=== PATIENT | male | born 1950 | race Caucasian/White ===

== ENCOUNTER 2018-07-11 11:01 | Inpatient (IN) | payer BC ==
[~2018-07-11] VITALS: Ht 188 cm; Wt 111.2 kg
[2018-07-11] MEDS ORDERED: ONDA4TAB12 PO (11:44)
[2018-07-11] MEDS ORDERED: MAGN400O7 PO (11:44)
[2018-07-11] MEDS ORDERED: ACET650S11 RC (11:44)
[2018-07-11] MEDS ORDERED: IBUP400T18 PO (11:44)
[2018-07-11] MEDS ORDERED: DOCU-109 PO (11:44)
[2018-07-11] MEDS ORDERED: LISI-334 PO (11:44)
[2018-07-11] MEDS ORDERED: [UNRECOGNIZED DRUG - CODE] IJ (11:44)
[2018-07-11] MEDS ORDERED: PREG100C PO (11:44)
[2018-07-11] MEDS ORDERED: DONE10TA61 PO (11:44)
[2018-07-11] MEDS ORDERED: ASPI-612 PO (11:44)
[2018-07-11] MEDS ORDERED: POLY17PO5 PO (11:44)
[2018-07-11] MEDS ORDERED: FURO-68 PO (11:44)
[2018-07-11] MEDS ORDERED: BISA5TAB4 PO (11:44)
[2018-07-11] MEDS ORDERED: ACET325T9 PO (11:44)
[2018-07-11] MEDS ORDERED: BISA10SU2 RC (11:44)
[2018-07-11] MEDS ORDERED: AMLO5TAB4 PO (11:44)
[2018-07-11] MEDS ORDERED: CLON0.5T PO (11:44)
[2018-07-11] MEDS ORDERED: ATOR20TA58 PO (11:44)
[2018-07-11 14:35] VITALS: BP 113/67
[2018-07-11] MEDS ORDERED: ACETAMINOPHEN 325 MG TABLET PO PRN (14:45)
[2018-07-11] MEDS ORDERED: METHYL SALICYLATE/MENTHOL TOPICAL OINTMENT 29GM TUBE. TP PRN (14:45)
[2018-07-11] MEDS ORDERED: MAGNESIUM HYDROXIDE 2,400 MG/30 ML ORAL.SUSP. PO PRN (14:45)
[2018-07-11] MEDS ORDERED: MAG HYDROX/AL HYDROX/SIMETH 30 ML ORAL.SUSP PO PRN (14:45)
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
[2018-07-11 15:22] LABS: BASO % 1 % (0-3); EOS # 0.2 x10^3/uL (0.0-0.7); EOS % 3 % (0-3); HEMATOCRIT 30.8 % (39.0-53.0); HEMOGLOBIN 10.7 g/dL (13.0-17.5); LYMPH # 1.3 x10^3/uL (1.0-4.8); LYMPH % 14 % (24-48); MEAN CORPUSCULAR HEMOGLOBIN 31 pg (25-35); MEAN CORPUSCULAR HGB CONC 35 g/dL (31-37); MEAN CORPUSCULAR VOLUME 88 fL (79-100); MONO # 0.6 x10^3/uL (0.0-1.1); MONO % 6 % (0-9); NEUT % 77 % (31-73); PLATELET COUNT 311 x10^3/uL (140-400); RED BLOOD COUNT 3.49 x10^6/uL (4.30-5.70); RED CELL DISTRIBUTION WIDTH 12.8 % (11.5-14.5); WHITE BLOOD COUNT 9.1 x10^3/uL (4.0-11.0)
[2018-07-11 15:36] LABS: CALCIUM 8.5 mg/dL (8.5-10.1); GFR 33.5; MAGNESIUM 1.7 mg/dL (1.8-2.4); POTASSIUM 4.4 mmol/L (3.5-5.1); TOTAL BILIRUBIN 0.2 mg/dL (0.2-1.0)
[2018-07-11] MEDS ORDERED: METF500T PO (15:39)
[2018-07-11] MEDS ORDERED: QUET25TA5 PO (15:44)
[2018-07-11] MEDS ORDERED: POLYETHYLENE GLYCOL 3350 17 GM PACKET. PO PRN (15:45)
[2018-07-11] MEDS ORDERED: clonazePAM 0.5 MG TABLET PO PRN (15:45)
[2018-07-11] MEDS ORDERED: QUEtiapine 25 MG TABLET. PO PRN (16:00)
[2018-07-11 16:28] VITALS: BP 152/78
[2018-07-11] MEDS: metFORMIN 500 MG TABLET PO SCH (18:01)
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
[2018-07-11] MEDS ORDERED: DEXTROSE 50% 25 GM / 50ML DISP.SYRIN. IV PRN (19:30)
[2018-07-11] MEDS: DONEPEZIL HCL 10 MG TABLET PO SCH (20:20)
[2018-07-11] MEDS: DOCUSATE SODIUM 100 MG CAPSULE PO SCH ×2 (20:20→20:40)
[2018-07-11] MEDS: PREGABALIN 50 MG CAPSULE PO SCH ×2 (20:22→20:40)
[2018-07-11] MEDS: INSULIN LISPRO 300 UNITS/3 ML INSULN.PEN. SQ SCH (20:29)
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
[2018-07-11 23:11] LABS: CLARITY,URINE CLEAR; COLOR,URINE YELLOW
[2018-07-11 23:12] LABS: BACTERIA,URINE 0 /HPF (0-FEW); BILIRUBIN,URINE NEG (NEG); GLUCOSE,URINE 250 mg/dL (NEG); NITRITE,URINE NEG (NEG); RBC,URINE 0 /HPF (0-2); SQUAMOUS EPITHELIAL CELL,UR OCC /LPF; UROBILINOGEN,URINE 0.2 mg/dL (0.2 mg/dL); WBC,URINE OCC /HPF (0-4)
--- NOTE | 2018-07-11 23:55 | PSYEV ---
DATE OF SERVICE: 07/11/2018 REASON FOR ADMISSION: This 68-year-old single male, was admitted to [facility] at the request of staff from [facility]. The patient apparently presented to the ER at least 5 times in the last few days complaining of leg pain and also some agitation and confusion with his thinking. The patient is also recently having visual hallucinations, expresses suicidal ideation, unable to sleep, at times hyperverbal. CHIEF COMPLAINT: The patient mainly focused on his problems with his leg pain and he knew what was going on. He knew that this has been here at [facility]. The patient also able to hold a reasonable conversation, did not exhibit any confusion at this time. The patient knew the correct month, year, but the date was one day behind. The patient was able to do 3 steps of serial 7's. The patient was able to recall 3 objects in 5 minutes. The patient denies that he had any major problems with his memory. The patient also has been diagnosed with dementia, Lewy body. HISTORY OF PRESENT ILLNESS: The patient states he is retired. 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 The patient was twice. First marriage, he has five children. The second marriage, one child. The patient has apparently dealt problems with second marriage. The patient is also questioning why his daughter sent him to the hospital. He denied that he had any problems, but mainly focused on his leg pain healing up. PAST MEDICAL HISTORY: The patient has a history of diabetes mellitus type 2, renal insufficiency, chronic kidney disease stage 3 and also history of alcohol abuse, peripheral neuropathy, hypertension, anemia, gait impairment, but the patient is able to walk with a walker. PAST PSYCHIATRIC HISTORY: The patient denies that has been treated for any major psychiatric problems. The patient admits he has some difficulty with memory at times. The patient also has difficulty with sleep, but the patient apparently has been drinking for quite some time. Currently, minimized his problems. The patient has been treated by his primary care doctor, James Berger. The patient's lab reviewed. The patient's RBC was 3.4, hemoglobin 10.7. The patient's electrolytes were within normal range. BUN was 38, creatinine 2, glucose 252, magnesium 1.7, total protein 6. The patient's liver enzymes were within normal range. PAST MEDICATION HISTORY: The patient states he is on temazepam for a period of time he was taking at night for sleep. The patient is also on Aricept 10 mg at night, Seroquel 12.5 mg daily p.r.n., Klonopin 0.125 mg at bedtime p.r.n. The patient is also on Lyrica 100 mg b.i.d., lisinopril 20 mg daily, amlodipine 5 mg daily, Lasix 40 mg daily, Lipitor 10 mg daily. SOCIAL HISTORY: History of alcohol abuse, but the patient is currently minimizing it. We will try to get more information with regard to the extent of his drinking. MENTAL STATUS EXAMINATION: The patient appeared to be of stated age, casually dressed, obese, marked psychomotor retardation. He was alert, oriented and able to make eye contact. His behavior was appropriate during the assessment, but showed some delayed response to questions. Speech was clear, monotone, decreased rate and rhythm. His affect and mood, denies of feeling depressed, but admits to feeling anxious, also fearful being by himself, having problems with severe pain on his leg. The patient focused on his medical complaints. The patient also admits to having panic attacks, but the patient denies that he had any visual hallucinations at this time. OBJECTIVE: VITAL SIGNS: Temperature 98.1, blood pressure 152/78, pulse 80, respirations 20. The patient is currently not exhibiting any withdrawal symptoms as he was drinking heavy. The patient is able to concentrate fairly well and the patient was able to give fairly reliable information with regard to his past. The patient is oriented to time, place and person. His memory is intact for both past and present. JUDGMENT: Fair. INSIGHT: Limited. PSYCHOSOCIAL HISTORY: The patient states he has had a good childhood. Denies of any abuse. The patient admits to drinking in the past, but denies has been drinking recently. The patient states is twice, first marriage 5 children, second marriage one son. The patient keeps in contact with all of his children and grandchildren. The patient denies of any legal problems. 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 Currently retired, lives alone. STRENGTHS: The patient apparently able to hold a reasonable conversation, able to provide fairly reliable information. The patient has a high school education. The patient currently is retired. WEAKNESSES: The patient is having multiple physical complaints. The patient is also having problems with concentration and thinking at times and recent history of visual hallucinations. INITIAL TREATMENT AND PLAN: The patient will be admitted to [facility]. The patient will be seen by Dr. Ozuna for physical exam. The patient's lab reviewed. The patient will be under observation. Continue with the current medications. LENGTH OF STAY: 7 days. DISCHARGE CRITERIA: The patient is able to show some improvement and no major behavior problems for 3 consecutive days. ADDENDUM DIAGNOSES: AXIS I: Generalized anxiety disorder; cognitive disorder, mild, panic disorder. AXIS II: None. AXIS III: Diabetes type 2, chronic kidney disease stage 3, peripheral neuropathy, hypertension, anemia and also history of alcohol abuse. AMINA SMALL MD DR: FAMILIA/vlad JOB#: [id number] / [id number]
[2018-07-12 02:07] LABS: THYROXINE 8.2 ug/dL (4.5-12.0)
[2018-07-12 03:07] LABS: HEMOGLOBIN A1C 7.1 % (4.8-5.6)
[2018-07-12 06:01] VITALS: BP 127/70
[2018-07-12] MEDS: DOCUSATE SODIUM 100 MG CAPSULE PO SCH ×2 (08:07→19:31)
[2018-07-12] MEDS: FUROSEMIDE 40 MG TABLET PO SCH (08:09)
[2018-07-12] MEDS: LISINOPRIL 20 MG TABLET PO SCH (08:09)
[2018-07-12] MEDS: ASPIRIN ENTERIC COATED 81 MG TABLET.DR. PO SCH (08:09)
[2018-07-12] MEDS: amLODIPine BESYLATE 5 MG TABLET PO SCH (08:09)
[2018-07-12] MEDS: metFORMIN 500 MG TABLET PO SCH ×2 (08:10→17:42)
[2018-07-12] MEDS: ATORVASTATIN CALCIUM 20 MG TABLET PO SCH (08:10)
[2018-07-12] MEDS: PREGABALIN 50 MG CAPSULE PO SCH ×2 (08:10→19:31)
[2018-07-12] MEDS: INSULIN LISPRO 300 UNITS/3 ML INSULN.PEN. SQ SCH ×4 (08:17→19:54)
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
--- NOTE | 2018-07-12 15:59 | NUR ---
Faxed request to Bella at [facility] for CARE assessment to be completed.
[2018-07-12 16:14] VITALS: BP 132/69
[2018-07-12 17:41] LABS: THYROID STIM HORMONE (TSH) 2.632 uIU/mL (0.358-3.740)
--- NOTE | 2018-07-12 19:22 | NUR ---
Nursing Note: Pt's daughter, Reena, visited and took home pt's ring, iphone and iphone psychology tech. Pt was informed of this.
[2018-07-12] MEDS: DONEPEZIL HCL 10 MG TABLET PO SCH (19:31)
[2018-07-12] MEDS: DIVALPROEX 125 MG CAP.SPRINK PO SCH (19:33)
--- NOTE | 2018-07-12 22:13 | NUR ---
Nursing note: Assumed care of pt in the day room. He was pleasant, cooperative and interactive. No c/o pain at this time.
--- NOTE | 2018-07-12 23:44 | PN ---
DATE: 07/12/2018 SUBJECTIVE: The patient was seen today, met with the staff, chart reviewed, and also met with the patient's daughter, she was able to give more information. OBSERVATION: VITAL SIGNS: Temperature 96.7, blood pressure 177/70, pulse 70, respirations 18, O2 sat 98%. Slept about 4 hours last night. CURRENT MEDICATIONS: The patient's current medications include Depakote 250 mg at night, Lipitor 20 mg daily, Lasix 40 mg daily, aspirin 81 mg daily, amlodipine 5 mg daily, lisinopril 20 mg daily. He is also on insulin, Lyrica 100 mg b.i.d., Aricept 10 mg at night, metformin 1000 mg b.i.d., Seroquel 12.5 mg p.r.n., clonazepam 0.125 mg at night p.r.n. The patient is not having any side effects. The patient's daughter reports that the patient had at least 2 hospitalizations once to [facility] on the medical floor and at [facility] secondary to his behavior problems and dementia. Apparently, he was evaluated at [facility] and diagnosed with Lewy body disease, dementia, and also Alzheimer dementia, and also pseudodementia. The patient apparently had more problems in the past 8 weeks including having visual hallucinations and usually it happens when the patient was asleep and gets very angry, upset, and he has seen people in his room, and also he saw at one time the whole room becoming smaller, covered with the bugs, and the patient also claims he tried to go and touch them and he did not feel anything. He was not bitten by the bugs. The patient states it happens, but most of the time the patient has a fairly clear sensorium and is not confused. Staff has not observed any confusion or delusions or having visual hallucinations so far. The patient is able to orient himself at this time. His memory is fairly intact except for episodic confusion. ASSESSMENT: AXIS I: 1. Generalized anxiety disorder. 2. Cognitive disorder, mild. 3. Panic disorder and also history of Lewy body dementia. AXIS II: None. AXIS III: Diabetes mellitus type 2, chronic kidney disease stage 3, peripheral neuropathy, hypertension, anemia, and history of alcohol abuse. PLAN: To continue with the treatment. AMINA SMALL MD DR: Mary JOB#: [id number] / [id number]
[2018-07-13 05:52] VITALS: BP 150/66
[2018-07-13] MEDS: ASPIRIN ENTERIC COATED 81 MG TABLET.DR. PO SCH (07:54)
[2018-07-13] MEDS: ATORVASTATIN CALCIUM 20 MG TABLET PO SCH (07:54)
[2018-07-13] MEDS: metFORMIN 500 MG TABLET PO SCH ×2 (07:54→17:54)
[2018-07-13] MEDS: DOCUSATE SODIUM 100 MG CAPSULE PO SCH ×2 (07:55→20:11)
[2018-07-13] MEDS: FUROSEMIDE 40 MG TABLET PO SCH (07:55)
[2018-07-13] MEDS: amLODIPine BESYLATE 5 MG TABLET PO SCH (07:55)
[2018-07-13] MEDS: LISINOPRIL 20 MG TABLET PO SCH (07:55)
[2018-07-13] MEDS: INSULIN LISPRO 300 UNITS/3 ML INSULN.PEN. SQ SCH ×4 (07:57→20:14)
[2018-07-13] MEDS: PREGABALIN 50 MG CAPSULE PO SCH ×2 (07:57→20:11)
--- NOTE | 2018-07-13 13:30 | NUR ---
resumed pt care.
[2018-07-13 16:23] VITALS: BP 136/84
--- NOTE | 2018-07-13 17:02 | PN ---
DATE: 07/13/2018 SUBJECTIVE: The patient was seen today, met with the staff, chart reviewed. The patient apparently having problems with his gait, has some swelling of feet. The patient also admits to having problems with constipation and is having difficulty getting out of a toilet seat and to close his pants, and he is hoping to get some help. OBSERVATION: VITAL SIGNS: Temperature 96.8, blood pressure 150/66, pulse 83, respirations 18, O2 sat 96%. Slept about 6 hours last night. The patient is not presenting with any major problems. The patient apparently has not shown any confusion, any agitation, did not show any visual hallucinations. The patient admits he had episodes while he was at home. The patient's remote memory is intact. Also, recent memory fairly good. The patient is able to comprehend the surroundings, able to hold a reasonable conversation. CURRENT MEDICATIONS: Include Depakote 250 mg at night, Lipitor 20 mg daily, Lasix 40 mg daily, aspirin 81 mg daily, Norvasc 5 mg daily, lisinopril 20 mg daily. He is also on insulin lispro, Lyrica 100 mg b.i.d., Aricept 10 mg at night, metformin 1000 mg b.i.d., Seroquel 12.5 mg daily p.r.n. for agitation, Klonopin 0.125 mg at bedtime p.r.n. The patient is not having any major physical problems except for gait, but able to walk. The patient's appetite is fair. The patient's lab reviewed except for hemoglobin of 10.7 and elevated blood sugar. All other results were within normal limits. ASSESSMENT: AXIS I: 1. Generalized anxiety disorder. 2. Cognitive disorder, mild. 3. Panic disorder. 4. History of Lewy body disease. AXIS II: None. AXIS III: Diabetes mellitus type 2, chronic kidney disease stage 3, peripheral neuropathy, hypertension, anemia and history of alcohol abuse. The patient claims he has not had any alcohol for several years. AMINA SMALL MD DR: FAMILIA/vlad JOB#: [id number] / [id number]
--- NOTE | 2018-07-13 18:18 | NUR ---
pt up to supper. in pleasant spirits. joking with staff. compliant with meds and cares.
[2018-07-13] MEDS: DIVALPROEX 125 MG CAP.SPRINK PO SCH (20:11)
[2018-07-13] MEDS: DONEPEZIL HCL 10 MG TABLET PO SCH (20:11)
--- NOTE | 2018-07-13 21:35 | NUR ---
Pt sitting up in day room at shift change. Pt calm, pleasant, and interactive. Pt c/o back pain, reports that pain so severe that he is unable to wipe himself. Pt also c/o bilateral leg pain. Pt attempted to resist HS medications stating "I took those at supper time". Pt was compliant with medications after being educated about his medications, dosing, and scheduling.
[2018-07-14 05:23] VITALS: BP 167/79
[2018-07-14] MEDS: metFORMIN 500 MG TABLET PO SCH ×2 (08:03→17:37)
[2018-07-14] MEDS: FUROSEMIDE 40 MG TABLET PO SCH (08:04)
[2018-07-14] MEDS: INSULIN LISPRO 300 UNITS/3 ML INSULN.PEN. SQ SCH ×4 (08:04→22:13)
[2018-07-14] MEDS: LISINOPRIL 20 MG TABLET PO SCH (08:06)
[2018-07-14] MEDS: ATORVASTATIN CALCIUM 20 MG TABLET PO SCH (08:07)
[2018-07-14] MEDS: DOCUSATE SODIUM 100 MG CAPSULE PO SCH ×2 (08:07→21:52)
[2018-07-14] MEDS: amLODIPine BESYLATE 5 MG TABLET PO SCH (08:08)
[2018-07-14] MEDS: ASPIRIN ENTERIC COATED 81 MG TABLET.DR. PO SCH (08:08)
[2018-07-14] MEDS: PREGABALIN 50 MG CAPSULE PO SCH ×2 (08:23→21:52)
--- NOTE | 2018-07-14 09:45 | NUR ---
ACTIVITY THERAPY ASSESSMENT Completed based on observation and interview. Pt. was sitting in the day room, greeted EXCHANGE CONSULTANT as she entered the room. Pt. was talkative and the conversation jumped around often, shared that he used to work nights for [employer] and thought that job might have messed up his REM sleep. Soon Pt's RN came with his medications. Pt. questioned the meds he was given but took them without hesitation. He is really looking forward to his 50th high school reunion. The topic of instruments was brought up. Pt. shared that he used to play the [employer], [employer] and perform [place] the [place] when he was younger. Pt. 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 He has a dog, Arnaldo and an "evil, wicked sister." When asked why he was here, Pt. stated he wanted to "communicate better." He talked about the staff here, some say they'll do something and don't. He said some even tell him they aren't his "servant or slave". Our interview was interrupted when another patient walked by and appeared to need help to a chair but this patient was calm and welcoming. 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 He shared he didn't have good luck with women, talked to a crusher and blender operator often about struggles. He also enjoys swimming, boating, Motown music and 50s/60s. He talked about needing help in the restroom, but not getting it. Made the comment, he thinks he should switch to a wheelchair to get the help he needs. Initial goal aimed to increase socialization and engagement: Pt. will participate in all Activity Therapy groups he is invited to.
[2018-07-14 15:22] VITALS: BP 129/65
[2018-07-14] MEDS: DONEPEZIL HCL 10 MG TABLET PO SCH (21:51)
[2018-07-14] MEDS: DIVALPROEX 125 MG CAP.SPRINK PO SCH (21:51)
--- NOTE | 2018-07-14 22:38 | PDOC ---
Exam Note: Wesly Note: Please also refer to the separate dictated note~for this date of service dictated separately. Discussed the patient with Nursing staff reviewed the chart.~Reviewed interim history and current functioning. Reviewed vital signs,~ Labs/ Radiology~and current medications noted below. Continue current treatment with the changes noted in the dictated addendum note Assessment: Vital Signs: Vital Signs Date Time Temp Pulse Resp B/P (MAP) Pulse Ox O2 Delivery O2 Flow Rate FiO2 07/14/18 15:22 97.4 86 20 129/65 (86) 99 Room Air I&O Intake and Output 07/14/18 07:00 Intake Total 1460 ml Balance 1460 ml Intake Oral 1460 ml Labs: Laboratory Tests Test 07/14/18 07:13 07/14/18 11:36 07/14/18 16:49 07/14/18 19:20 Glucose (Fingerstick) 201 mg/dL (70-99) H 365 mg/dL (70-99) H 253 mg/dL (70-99) H 292 mg/dL (70-99) H Current Medications: Meds: Current Medications Acetaminophen (Tylenol) 650 mg PRN Q6HRS PRN PO PAIN / TEMP; Start 07/11/18 at 14:45 Multi-Ingredient Ointment (Analgesic [place]) 1 charisse PRN QID PRN TP MUSCLE PAIN; Start 07/11/18 at 14:45 Al Hydroxide/Mg Hydroxide (Mylanta Plus Xs) 15 ml PRN AFTMEALHC PRN PO DYSPEPSIA; Start 07/11/18 at 14:45 Magnesium Hydroxide (Milk Of Magnesia) 2,400 mg PRN QHS PRN PO CONSTIPATION; Start 07/11/18 at 14:45 Lisinopril (Prinivil) 20 mg DAILY PO Last administered on 07/14/18at 08:06; Start 07/12/18 at 09:00 Amlodipine Besylate (Norvasc) 5 mg DAILY PO Last administered on 07/14/18at 08: 08; Start 07/12/18 at 09:00 Aspirin (Aspirin Enteric Coated) 81 mg DAILY PO Last administered on 07/14/18at 08:08; Start 07/12/18 at 09:00 Docusate Sodium (Colace) 100 mg BID PO Last administered on 07/14/18at 21:52; Start 07/11/18 at 21:00 Donepezil HCl (Aricept) 10 mg QHS PO Last administered on 07/14/18at 21:51; Start 07/11/18 at 21:00 Furosemide (Lasix) 40 mg DAILY PO Last administered on 07/14/18at 08:04; Start 07/12/18 at 09:00 Polyethylene Glycol (miraLAX) 17 gm PRN DAILY PRN PO CONSTIPATION; Start at 15:45 Pregabalin (Lyrica) 100 mg BID PO Last administered on 07/14/18at 21:52; Start 07/11/18 at 21:00 Atorvastatin Calcium (Lipitor) 20 mg DAILY PO Last administered on 07/14/18at 08 :07; Start 07/12/18 at 09:00 Clonazepam (KlonoPIN) 0.125 mg PRN QHS PRN PO ANXIETY / AGITATION; Start at 15:45 Metformin HCl (Glucophage) 1,000 mg BIDWMEALS PO Last administered on at 17:37; Start 07/11/18 at 17:00 Quetiapine Fumarate (SEROquel) 12.5 mg PRN DAILY PRN PO AGITATION; Start at 16:00 Insulin Human Lispro (HumaLOG) 0-5 UNITS TIDACHC SQ Last administered on at 22:13; Start 07/11/18 at 21:00 Dextrose 12.5 gm PRN Q15MIN PRN IV SEE COMMENTS; Start 07/11/18 at 19:30 Divalproex Sodium (Depakote Sprinkles) 250 mg QHS PO Last administered on at 21:51; Start 07/12/18 at 21:00 Active Scripts Active Reported Seroquel (Quetiapine Fumarate) 25 Mg Tablet 12.5 Mg PO PRN DAILY PRN Glucophage (Metformin Hcl) 500 Mg Tablet 1,000 Mg PO BIDWMEALS Lyrica (Pregabalin) 100 Mg Capsule 1 Cap PO BID Miralax (Polyethylene Glycol 3350) 17 Gm Powd.pack 1 Packet PO DAILY PRN Lisinopril 20 Mg Tablet 1 Tab PO DAILY Lasix (Furosemide) 40 Mg Tablet 1 Tab PO DAILY Aricept (Donepezil Hcl) 10 Mg Tablet 1 Tab PO QHS Colace (Docusate Sodium) 100 Mg Capsule 1 Cap PO BID Klonopin (Clonazepam) 0.5 Mg Tablet 0.25 Tab PO HS PRN Atorvastatin Calcium 20 Mg Tablet 20 Mg PO DAILY Aspirin Ec (Aspirin) 81 Mg Tablet. 1 Tab PO DAILY Norvasc (Amlodipine Besylate) 5 Mg Tablet 1 Tab PO DAILY I have reviewed the current psychotropics carefully including drug interactions. Risk benefit ratio favors no change other than as noted in my dictated progress note. Diagnosis: Problems: (1) Dementia, vascular, with depression DARWIN ISAACS MD Jul 14, 2018 22:38
--- NOTE | 2018-07-14 23:41 | PN ---
DATE: 07/14/2018 SUBJECTIVE: The patient was seen today, met with the staff, chart reviewed. The staff reports no major complaints, not exhibiting any major problems. The patient has not exhibited any confusion or any visual hallucinations. His behavior has been appropriate most of the time. The patient not admitting to feeling depressed. No suicidal or homicidal thoughts. OBSERVATION: VITAL SIGNS: Temperature 97.7, blood pressure 167/74, pulse 74, respirations 14, O2 sat 99%. Slept about 5 hours last night. The patient's appetite improved. The patient has been participating in activities. The patient has some difficulty walking, but his gait is fairly steady, no falls. MEDICATIONS: The patient's current medications include Depakote 250 mg at night and Aricept 10 mg at night, Seroquel 12.5 mg daily p.r.n. for agitation, Klonopin 0.125 mg at bedtime p.r.n. LABORATORY DATA: The patient's lab reviewed. ASSESSMENT: 1. Generalized anxiety disorder. 2. Cognitive disorder, mild. 3. Panic disorder. 4. History of Lewy body disease. PLAN: To continue with the treatment. AMINA SMALL MD DR: FAMILIA/vlad JOB#: [id number] / [id number]
--- NOTE | 2018-07-15 00:55 | NUR ---
Behavior Intervention Response and Plan: BIRP Note: Behavior: Assumed Care of patient, patient located in Bed at shift change. Patient exhibited the following behavior Calm, Sleeping, Cooperative. Brief assessment on rounds of vital signs, medication needs, lab studies, and pain. Treatment plan problems . Intervention: Patient assessed and the following interventions initiated safety checks 15 Minute Checks Personal Alarm in place , Head to toe Assessment , Medications. Response: After interactions and interventions patient responded in the following manner, Compliant , ,. Continue to assess behaviors and condition will continue to monitor throughout the shift as needed. Patient educated on ADL's, and hand hygiene. Plan: Continue to monitor Master Treatment Plan for patient's progress toward short term goals of Improved Mood, Decreased Anxiety, [facility] goals to return to previous living setting vs placement. Continue to assess patient for changes in above assessment. Monitor for medication needs, pain, and safety concerns. Hourly rounding performed to ensure safe environment.
[2018-07-15 06:29] VITALS: BP 138/66
[2018-07-15] MEDS: ATORVASTATIN CALCIUM 20 MG TABLET PO SCH (07:17)
[2018-07-15] MEDS: ASPIRIN ENTERIC COATED 81 MG TABLET.DR. PO SCH (07:17)
[2018-07-15] MEDS: FUROSEMIDE 40 MG TABLET PO SCH (07:17)
[2018-07-15] MEDS: DOCUSATE SODIUM 100 MG CAPSULE PO SCH ×2 (07:17→19:43)
[2018-07-15] MEDS: metFORMIN 500 MG TABLET PO SCH ×2 (07:17→16:29)
[2018-07-15] MEDS: amLODIPine BESYLATE 5 MG TABLET PO SCH (07:18)
[2018-07-15] MEDS: LISINOPRIL 20 MG TABLET PO SCH (07:19)
[2018-07-15] MEDS: PREGABALIN 50 MG CAPSULE PO SCH ×2 (07:20→19:48)
[2018-07-15] MEDS: INSULIN LISPRO 300 UNITS/3 ML INSULN.PEN. SQ SCH ×4 (08:26→19:50)
[2018-07-15 17:38] VITALS: BP 152/82
--- NOTE | 2018-07-15 18:19 | NUR ---
Pt has been calm and cooperative throughout shift. Pt insisted that he could not wipe himself or put on his own pants. This nurse and a PHYTOCHEMISTRY PROFESSOR insisted that pt complete ADLs himself, since he came from home and was doing it himself at home. Pt eventually obliged and went to day room when dressed.
--- NOTE | 2018-07-15 18:21 | NUR ---
Behavior Intervention Response and Plan: BIRP Note: Behavior: Assumed Care of patient, patient located in Patient Room at shift change. Patient exhibited the following behavior Irritable, Attention Seeking, Resistive. Brief assessment on rounds of vital signs, medication needs, lab studies, and pain. Treatment plan problems: alteration in thought process and fall risk. Intervention: Patient assessed and the following interventions initiated safety checks 15 Minute Checks Cognitive Assessment , Head to toe Assessment , Medications. Response: After interactions and interventions patient responded in the following manner, Calm , Compliant ,Cooperative. Continue to assess behaviors and condition will continue to monitor throughout the shift as needed. Patient educated on ADL's, and hand hygiene. Plan: Continue to monitor Master Treatment Plan for patient's progress toward short term goals of Decreased Anxiety, No harm To self/ others, long term care pharmacist goals to return to previous living setting vs placement. Continue to assess patient for changes in above assessment. Monitor for medication needs, pain, and safety concerns. Hourly rounding performed to ensure safe environment.
[2018-07-15] MEDS: DIVALPROEX 125 MG CAP.SPRINK PO SCH (19:42)
[2018-07-15] MEDS: DONEPEZIL HCL 10 MG TABLET PO SCH (19:43)
--- NOTE | 2018-07-15 22:16 | PDOC ---
Exam Note: Wesly Note: "This is a late entry for 07/14/18. The template note for 07/14/18 was completed in error and should be disregarded." Please also refer to the separate dictated note~for this date of service dictated separately.~Patient seen individually. Discussed the patient with Nursing staff reviewed the chart.~ Reviewed interim history and current functioning. Reviewed vital signs,~Labs/ Radiology~and current medications noted below. Continue current treatment with the changes noted in the dictated addendum note Assessment: Vital Signs: Vital Signs Date Time Temp Pulse Resp B/P (MAP) Pulse Ox O2 Delivery O2 Flow Rate FiO2 07/15/18 17:38 98.4 78 16 152/82 (105) 98 07/14/18 15:22 Room Air I&O Intake and Output 07/15/18 07:00 Intake Total 1680 ml Balance 1680 ml Intake Oral 1680 ml Labs: Laboratory Tests Test 07/15/18 07:40 07/15/18 11:59 07/15/18 17:16 07/15/18 19:19 Glucose (Fingerstick) 211 mg/dL (70-99) H 149 mg/dL (70-99) H 280 mg/dL (70-99) H 229 mg/dL (70-99) H Current Medications: Meds: Current Medications Acetaminophen (Tylenol) 650 mg PRN Q6HRS PRN PO PAIN / TEMP; Start 07/11/18 at 14:45 Multi-Ingredient Ointment (Analgesic [place]) 1 charisse PRN QID PRN TP MUSCLE PAIN; Start 07/11/18 at 14:45 Al Hydroxide/Mg Hydroxide (Mylanta Plus Xs) 15 ml PRN AFTMEALHC PRN PO DYSPEPSIA; Start 07/11/18 at 14:45 Magnesium Hydroxide (Milk Of Magnesia) 2,400 mg PRN QHS PRN PO CONSTIPATION; Start 07/11/18 at 14:45 Lisinopril (Prinivil) 20 mg DAILY PO Last administered on 07/15/18at 07:19; Start 07/12/18 at 09:00 Amlodipine Besylate (Norvasc) 5 mg DAILY PO Last administered on 07/15/18at 07: 18; Start 07/12/18 at 09:00 Aspirin (Aspirin Enteric Coated) 81 mg DAILY PO Last administered on 07/15/18 07:17; Start 07/12/18 at 09:00 Docusate Sodium (Colace) 100 mg BID PO Last administered on 07/15/18 19:43; Start 07/11/18 at 21:00 Donepezil HCl (Aricept) 10 mg QHS PO Last administered on 07/15/18 19:43; Start 07/11/18 at 21:00 Furosemide (Lasix) 40 mg DAILY PO Last administered on 07/15/18at 07:17; Start 07/12/18 at 09:00 Polyethylene Glycol (miraLAX) 17 gm PRN DAILY PRN PO CONSTIPATION; Start at 15:45 Pregabalin (Lyrica) 100 mg BID PO Last administered on 07/15/18 19:48; Start 07/11/18 at 21:00 Atorvastatin Calcium (Lipitor) 20 mg DAILY PO Last administered on 07/15/18at 07 :17; Start 07/12/18 at 09:00 Clonazepam (KlonoPIN) 0.125 mg PRN QHS PRN PO ANXIETY / AGITATION; Start at 15:45 Metformin HCl (Glucophage) 1,000 mg BIDWMEALS PO Last administered on at 16:29; Start 07/11/18 at 17:00 Quetiapine Fumarate (SEROquel) 12.5 mg PRN DAILY PRN PO AGITATION; Start at 16:00 Insulin Human Lispro (HumaLOG) 0-5 UNITS TIDACHC SQ Last administered on at 19:50; Start 07/11/18 at 21:00 Dextrose 12.5 gm PRN Q15MIN PRN IV SEE COMMENTS; Start 07/11/18 at 19:30 Divalproex Sodium (Depakote Sprinkles) 250 mg QHS PO Last administered on 19:42; Start 07/12/18 at 21:00 Bupropion HCl (Wellbutrin Xl) 150 mg DAILY PO ; Start 07/16/18 at 09:00 Active Scripts Active Reported Seroquel (Quetiapine Fumarate) 25 Mg Tablet 12.5 Mg PO PRN DAILY PRN Glucophage (Metformin Hcl) 500 Mg Tablet 1,000 Mg PO BIDWMEALS Lyrica (Pregabalin) 100 Mg Capsule 1 Cap PO BID Miralax (Polyethylene Glycol 3350) 17 Gm Powd.pack 1 Packet PO DAILY PRN Lisinopril 20 Mg Tablet 1 Tab PO DAILY Lasix (Furosemide) 40 Mg Tablet 1 Tab PO DAILY Aricept (Donepezil Hcl) 10 Mg Tablet 1 Tab PO QHS Colace (Docusate Sodium) 100 Mg Capsule 1 Cap PO BID Klonopin (Clonazepam) 0.5 Mg Tablet 0.25 Tab PO HS PRN Atorvastatin Calcium 20 Mg Tablet 20 Mg PO DAILY Aspirin Ec (Aspirin) 81 Mg Tablet.dr 1 Tab PO DAILY Norvasc (Amlodipine Besylate) 5 Mg Tablet 1 Tab PO DAILY I have reviewed the current psychotropics carefully including drug interactions. Risk benefit ratio favors no change other than as noted in my dictated progress note. Diagnosis: Problems: (1) Dementia, vascular, with depression DARWIN ISAACS MD Jul 15, 2018 22:16
--- NOTE | 2018-07-15 23:03 | PDOC ---
Exam Note: Wesly Note: Please also refer to the separate dictated note~for this date of service dictated separately.~Patient seen individually. Discussed the patient with Nursing staff reviewed the chart.~Reviewed interim history and current functioning. Reviewed vital signs,~Labs/ Radiology~and current medications noted below. Continue current treatment with the changes noted in the dictated addendum note Assessment: Vital Signs: Vital Signs Date Time Temp Pulse Resp B/P (MAP) Pulse Ox O2 Delivery O2 Flow Rate FiO2 07/15/18 17:38 98.4 78 16 152/82 (105) 98 07/14/18 15:22 Room Air I&O Intake and Output 07/15/18 07:00 Intake Total 1680 ml Balance 1680 ml Intake Oral 1680 ml Labs: Laboratory Tests Test 07/15/18 07:40 07/15/18 11:59 07/15/18 17:16 07/15/18 19:19 Glucose (Fingerstick) 211 mg/dL (70-99) H 149 mg/dL (70-99) H 280 mg/dL (70-99) H 229 mg/dL (70-99) H Current Medications: Meds: Current Medications Acetaminophen (Tylenol) 650 mg PRN Q6HRS PRN PO PAIN / TEMP; Start 07/11/18 at 14:45 Multi-Ingredient Ointment (Analgesic [place]) 1 charisse PRN QID PRN TP MUSCLE PAIN; Start 07/11/18 at 14:45 Al Hydroxide/Mg Hydroxide (Mylanta Plus Xs) 15 ml PRN AFTMEALHC PRN PO DYSPEPSIA; Start 07/11/18 at 14:45 Magnesium Hydroxide (Milk Of Magnesia) 2,400 mg PRN QHS PRN PO CONSTIPATION; Start 07/11/18 at 14:45 Lisinopril (Prinivil) 20 mg DAILY PO Last administered on 07/15/18at 07:19; Start 07/12/18 at 09:00 Amlodipine Besylate (Norvasc) 5 mg DAILY PO Last administered on 07/15/18at 07: 18; Start 07/12/18 at 09:00 Aspirin (Aspirin Enteric Coated) 81 mg DAILY PO Last administered on 07/15/18at 07:17; Start 07/12/18 at 09:00 Docusate Sodium (Colace) 100 mg BID PO Last administered on 07/15/18 19:43; Start 07/11/18 at 21:00 Donepezil HCl (Aricept) 10 mg QHS PO Last administered on 07/15/18 19:43; Start 07/11/18 at 21:00 Furosemide (Lasix) 40 mg DAILY PO Last administered on 07/15/18 07:17; Start 07/12/18 at 09:00 Polyethylene Glycol (miraLAX) 17 gm PRN DAILY PRN PO CONSTIPATION; Start at 15:45 Pregabalin (Lyrica) 100 mg BID PO Last administered on 07/15/18 19:48; Start 07/11/18 at 21:00 Atorvastatin Calcium (Lipitor) 20 mg DAILY PO Last administered on 07/15/18 07 :17; Start 07/12/18 at 09:00 Clonazepam (KlonoPIN) 0.125 mg PRN QHS PRN PO ANXIETY / AGITATION; Start at 15:45 Metformin HCl (Glucophage) 1,000 mg BIDWMEALS PO Last administered on at 16:29; Start 07/11/18 at 17:00 Quetiapine Fumarate (SEROquel) 12.5 mg PRN DAILY PRN PO AGITATION; Start at 16:00 Insulin Human Lispro (HumaLOG) 0-5 UNITS TIDACHC SQ Last administered on at 19:50; Start 07/11/18 at 21:00 Dextrose 12.5 gm PRN Q15MIN PRN IV SEE COMMENTS; Start 07/11/18 at 19:30 Divalproex Sodium (Depakote Sprinkles) 250 mg QHS PO Last administered on at 19:42; Start 07/12/18 at 21:00 Bupropion HCl (Wellbutrin Xl) 150 mg DAILY PO ; Start 07/16/18 at 09:00 Active Scripts Active Reported Seroquel (Quetiapine Fumarate) 25 Mg Tablet 12.5 Mg PO PRN DAILY PRN Glucophage (Metformin Hcl) 500 Mg Tablet 1,000 Mg PO BIDWMEALS Lyrica (Pregabalin) 100 Mg Capsule 1 Cap PO BID Miralax (Polyethylene Glycol 3350) 17 Gm Powd.pack 1 Packet PO DAILY PRN Lisinopril 20 Mg Tablet 1 Tab PO DAILY Lasix (Furosemide) 40 Mg Tablet 1 Tab PO DAILY Aricept (Donepezil Hcl) 10 Mg Tablet 1 Tab PO QHS Colace (Docusate Sodium) 100 Mg Capsule 1 Cap PO BID Klonopin (Clonazepam) 0.5 Mg Tablet 0.25 Tab PO HS PRN Atorvastatin Calcium 20 Mg Tablet 20 Mg PO DAILY Aspirin Ec (Aspirin) 81 Mg Tablet. 1 Tab PO DAILY Norvasc (Amlodipine Besylate) 5 Mg Tablet 1 Tab PO DAILY I have reviewed the current psychotropics carefully including drug interactions. Risk benefit ratio favors no change other than as noted in my dictated progress note. Diagnosis: Problems: (1) Dementia, vascular, with depression DARWIN ISAACS MD Jul 15, 2018 23:03
[2018-07-16 06:22] VITALS: BP 171/72
[2018-07-16] MEDS: FUROSEMIDE 40 MG TABLET PO SCH (08:19)
[2018-07-16] MEDS: ATORVASTATIN CALCIUM 20 MG TABLET PO SCH (08:19)
[2018-07-16] MEDS: DOCUSATE SODIUM 100 MG CAPSULE PO SCH ×2 (08:19→19:19)
[2018-07-16] MEDS: metFORMIN 500 MG TABLET PO SCH ×2 (08:19→16:52)
[2018-07-16] MEDS: amLODIPine BESYLATE 5 MG TABLET PO SCH (08:19)
[2018-07-16] MEDS: ASPIRIN ENTERIC COATED 81 MG TABLET.DR. PO SCH (08:19)
[2018-07-16] MEDS: LISINOPRIL 20 MG TABLET PO SCH (08:20)
[2018-07-16] MEDS: INSULIN LISPRO 300 UNITS/3 ML INSULN.PEN. SQ SCH ×4 (08:22→19:22)
[2018-07-16] MEDS: PREGABALIN 50 MG CAPSULE PO SCH ×2 (08:32→19:21)
[2018-07-16] MEDS: buPROPion XL 150 MG TAB.ER.24H PO SCH (08:32)
--- NOTE | 2018-07-16 11:33 | NUR ---
Pt has been calm, cooperative, and appropriate. Pt is very interactive and social and enjoys having a conversation. Pt is A&Ox4. Pt claims to have never had SI because "it is against God's will." When asked if pt still feels anxiety, pt stated "I can feel it ready to come up." Pt sits in day room next to another certain patient and sits quietly.
--- NOTE | 2018-07-16 13:05 | NUR ---
Behavior Intervention Response and Plan: BIRP Note: Behavior: Assumed Care of patient, patient located in Day Room at shift change. Patient exhibited the following behavior Calm, Compliant, Cooperative. Brief assessment on rounds of vital signs, medication needs, lab studies, and pain. Treatment plan problems: alteration in thought process and fall risk. Intervention: Patient assessed and the following interventions initiated safety checks 15 Minute Checks Cognitive Assessment , Head to toe Assessment , Medications. Response: After interactions and interventions patient responded in the following manner, Calm , Appropriate ,Social. Continue to assess behaviors and condition will continue to monitor throughout the shift as needed. Patient educated on ADL's, and hand hygiene. Plan: Continue to monitor Master Treatment Plan for patient's progress toward short term goals of Decreased Anxiety, Improved Mood, senior living goals to return to previous living setting vs placement. Continue to assess patient for changes in above assessment. Monitor for medication needs, pain, and safety concerns. Hourly rounding performed to ensure safe environment.
[2018-07-16 16:28] VITALS: BP 153/82
[2018-07-16] MEDS: DIVALPROEX 125 MG CAP.SPRINK PO SCH (19:19)
[2018-07-16] MEDS: DONEPEZIL HCL 10 MG TABLET PO SCH (19:19)
--- NOTE | 2018-07-16 19:25 | NUR ---
At shift change pt is sitting up in the dayroom, watching TV. Pt has been calm, cooperative, and appropriate. Pt is very interactive and social with staff. Pt resistive with medications, but compliant with encouragement.
--- NOTE | 2018-07-16 21:19 | PN ---
DATE: 07/15/2018 PSYCHIATRIC PROGRESS NOTE This late entry 07/15/2018 covers elements not covered in my initial note. SUBJECTIVE: I met with the patient in the evening and reviewed information from Dr. Mosley who covered for me for the past few days. The patient slept 5-3/4 hours previous night. In the morning, he was noted to be somewhat helpless on the toilet. He had been previously living at home and this was unusual per nursing report. He minimizes being depressed, but does admit to some low energy. He had a lengthy discussion with him. He denied any history of alcohol abuse, but he states he used to work for [employer]. REVIEW OF SYSTEMS: Ambulation impaired with walker. No CV, , pulmonary, eye, ENT system symptoms on review. Reliability fair. MENTAL STATUS EXAM: Oriented to himself and situation. Speech is coherent, abstraction fair. Computation, he is able to do 3-step serial sevens, able to tell me the name of the President , though he knew the month and the year, but not the exact date. Abstraction fair, computation as above. No active suicidal or homicidal ideation. IMPRESSION: Major depressive disorder, recurrent, cognitive disorder, unspecified. Rest unchanged. PLAN: Start Wellbutrin-XL 150 mg a day in the morning for his mood symptoms. Continue rest unchanged per initial note including Depakote, Aricept along with Klonopin p.r.n. DARWIN ISAACS MD DR: GLORIA/vlad JOB#: [id number] / [id number]
--- NOTE | 2018-07-16 22:44 | PDOC ---
Exam Note: Wesly Note: Please also refer to the separate dictated note~for this date of service dictated separately.~Patient seen individually. Discussed the patient with Nursing staff reviewed the chart.~Reviewed interim history and current functioning. Reviewed vital signs,~Labs/ Radiology~and current medications noted below. Continue current treatment with the changes noted in the dictated addendum note Assessment: Vital Signs: Vital Signs Date Time Temp Pulse Resp B/P (MAP) Pulse Ox O2 Delivery O2 Flow Rate FiO2 07/16/18 16:28 97.8 89 20 153/82 (105) 99 Room Air I&O Intake and Output 07/16/18 07:00 Intake Total 1320 ml Balance 1320 ml Intake Oral 1320 ml # Bowel Movements 2 Labs: Laboratory Tests Test 07/16/18 07:14 07/16/18 11:38 07/16/18 16:31 07/16/18 19:04 Glucose (Fingerstick) 174 mg/dL (70-99) H 354 mg/dL (70-99) H 273 mg/dL (70-99) H 257 mg/dL (70-99) H Current Medications: Meds: Current Medications Acetaminophen (Tylenol) 650 mg PRN Q6HRS PRN PO PAIN / TEMP; Start 07/11/18 at 14:45 Multi-Ingredient Ointment (Analgesic [place]) 1 charisse PRN QID PRN TP MUSCLE PAIN; Start 07/11/18 at 14:45 Al Hydroxide/Mg Hydroxide (Mylanta Plus Xs) 15 ml PRN AFTMEALHC PRN PO DYSPEPSIA; Start 07/11/18 at 14:45 Magnesium Hydroxide (Milk Of Magnesia) 2,400 mg PRN QHS PRN PO CONSTIPATION; Start 07/11/18 at 14:45 Lisinopril (Prinivil) 20 mg DAILY PO Last administered on 07/16/18at 08:20; Start 07/12/18 at 09:00 Amlodipine Besylate (Norvasc) 5 mg DAILY PO Last administered on 07/16/18at 08: 19; Start 07/12/18 at 09:00 Aspirin (Aspirin Enteric Coated) 81 mg DAILY PO Last administered on 07/16/18at 08:19; Start 07/12/18 at 09:00 Docusate Sodium (Colace) 100 mg BID PO Last administered on 3/19/19at 19:19; Start 07/11/18 at 21:00 Donepezil HCl (Aricept) 10 mg QHS PO Last administered on 07/16/18 19:19; Start 07/11/18 at 21:00 Furosemide (Lasix) 40 mg DAILY PO Last administered on 07/16/18at 08:19; Start 07/12/18 at 09:00 Polyethylene Glycol (miraLAX) 17 gm PRN DAILY PRN PO CONSTIPATION; Start at 15:45 Pregabalin (Lyrica) 100 mg BID PO Last administered on 07/16/18at 19:21; Start 07/11/18 at 21:00 Atorvastatin Calcium (Lipitor) 20 mg DAILY PO Last administered on 07/16/18 08 :19; Start 07/12/18 at 09:00 Clonazepam (KlonoPIN) 0.125 mg PRN QHS PRN PO ANXIETY / AGITATION; Start at 15:45 Metformin HCl (Glucophage) 1,000 mg BIDWMEALS PO Last administered on at 16:52; Start 07/11/18 at 17:00 Quetiapine Fumarate (SEROquel) 12.5 mg PRN DAILY PRN PO AGITATION; Start at 16:00 Insulin Human Lispro (HumaLOG) 0-5 UNITS TIDACHC SQ Last administered on at 19:22; Start 07/11/18 at 21:00 Dextrose 12.5 gm PRN Q15MIN PRN IV SEE COMMENTS; Start 07/11/18 at 19:30 Divalproex Sodium (Depakote Sprinkles) 250 mg QHS PO Last administered on at 19:19; Start 07/12/18 at 21:00 Bupropion HCl (Wellbutrin Xl) 150 mg DAILY PO Last administered on 07/16/18at 08 :32; Start 07/16/18 at 09:00 Active Scripts Active Reported Seroquel (Quetiapine Fumarate) 25 Mg Tablet 12.5 Mg PO PRN DAILY PRN Glucophage (Metformin Hcl) 500 Mg Tablet 1,000 Mg PO BIDWMEALS Lyrica (Pregabalin) 100 Mg Capsule 1 Cap PO BID Miralax (Polyethylene Glycol 3350) 17 Gm Powd.pack 1 Packet PO DAILY PRN Lisinopril 20 Mg Tablet 1 Tab PO DAILY Lasix (Furosemide) 40 Mg Tablet 1 Tab PO DAILY Aricept (Donepezil Hcl) 10 Mg Tablet 1 Tab PO QHS Colace (Docusate Sodium) 100 Mg Capsule 1 Cap PO BID Klonopin (Clonazepam) 0.5 Mg Tablet 0.25 Tab PO HS PRN Atorvastatin Calcium 20 Mg Tablet 20 Mg PO DAILY Aspirin Ec (Aspirin) 81 Mg Tablet. 1 Tab PO DAILY Norvasc (Amlodipine Besylate) 5 Mg Tablet 1 Tab PO DAILY I have reviewed the current psychotropics carefully including drug interactions. Risk benefit ratio favors no change other than as noted in my dictated progress note. Diagnosis: Problems: (1) Dementia, vascular, with depression DARWIN ISAACS MD Jul 16, 2018 22:44
[2018-07-17 06:11] VITALS: BP 145/59
[2018-07-17] MEDS: metFORMIN 500 MG TABLET PO SCH ×2 (07:45→16:43)
[2018-07-17] MEDS: FUROSEMIDE 40 MG TABLET PO SCH (07:45)
[2018-07-17] MEDS: ATORVASTATIN CALCIUM 20 MG TABLET PO SCH (07:45)
[2018-07-17] MEDS: buPROPion XL 150 MG TAB.ER.24H PO SCH (07:46)
[2018-07-17] MEDS: amLODIPine BESYLATE 5 MG TABLET PO SCH (07:46)
[2018-07-17] MEDS: ASPIRIN ENTERIC COATED 81 MG TABLET.DR. PO SCH (07:47)
[2018-07-17] MEDS: DOCUSATE SODIUM 100 MG CAPSULE PO SCH ×2 (07:47→19:27)
[2018-07-17] MEDS: LISINOPRIL 20 MG TABLET PO SCH (07:47)
[2018-07-17] MEDS: INSULIN LISPRO 300 UNITS/3 ML INSULN.PEN. SQ SCH ×4 (07:59→19:34)
[2018-07-17] MEDS: PREGABALIN 50 MG CAPSULE PO SCH ×2 (08:57→19:38)
--- NOTE | 2018-07-17 15:01 | NUR ---
Behavior Intervention Response and Plan: BIRP Note: Behavior: Assumed Care of patient, patient located in Day Room at shift change. Patient exhibited the following behavior Calm, Interactive, Cooperative. Brief assessment on rounds of vital signs, medication needs, lab studies, and pain. Treatment plan problems: alteration in thought process and fall risk. Intervention: Patient assessed and the following interventions initiated safety checks 15 Minute Checks Cognitive Assessment , Head to toe Assessment , Medications. Response: After interactions and interventions patient responded in the following manner, Calm , Appropriate ,Social. Continue to assess behaviors and condition will continue to monitor throughout the shift as needed. Patient educated on ADL's, and hand hygiene. Plan: Continue to monitor Master Treatment Plan for patient's progress toward short term goals of Decreased Anxiety, Improved Mood, nursing home goals to return to previous living setting vs placement. Continue to assess patient for changes in above assessment. Monitor for medication needs, pain, and safety concerns. Hourly rounding performed to ensure safe environment.
[2018-07-17 16:40] VITALS: BP 163/78
--- NOTE | 2018-07-17 19:18 | PN ---
DATE: 07/16/2018 PSYCHIATRIC PROGRESS NOTE This late entry 07/16/2018 covers elements not covered in my initial note. SUBJECTIVE: I met with the patient in the evening. The patient is alert, oriented x 3. He denies suicidal ideation, slept 5-1/2 hours previous night. Otherwise, cooperative. REVIEW OF SYSTEMS: No CV, , pulmonary, eye, ENT system symptoms on review. He is very verbal individually. MENTAL STATUS EXAM: Oriented as above. Speech is coherent, abstraction fair, computation somewhat impaired, language function intact, attention span short. Mood and affect overall improved. LABORATORY DATA: Reviewed. IMPRESSION: Unchanged from initial note. PLAN: No change from initial note. MAN Dyan ISAACS MD DR: GLORIA/vlad JOB#: [id number] / [id number]
[2018-07-17] MEDS: DONEPEZIL HCL 10 MG TABLET PO SCH (19:27)
[2018-07-17] MEDS: DIVALPROEX 125 MG CAP.SPRINK PO SCH (19:28)
[2018-07-17] MEDS: MIRTAZAPINE 7.5 MG TABLET. PO SCH (19:38)
--- NOTE | 2018-07-17 21:00 | NUR ---
Behavior Intervention Response and Plan: BIRP Note: Behavior: Assumed Care of patient, patient located in Day Room at shift change. Patient exhibited the following behavior Calm, Social, Cooperative. Brief assessment on rounds of vital signs, medication needs, lab studies, and pain. Treatment plan problems . Intervention: Patient assessed and the following interventions initiated safety checks 15 Minute Checks Cognitive Assessment , Head to toe Assessment , Medications. Response: After interactions and interventions patient responded in the following manner, Drowsy , Calm ,Cooperative. Continue to assess behaviors and condition will continue to monitor throughout the shift as needed. Patient educated on ADL's, and hand hygiene. Plan: Continue to monitor Master Treatment Plan for patient's progress toward short term goals of Decreased Agitation, Decreased Anxiety, snf goals to return to previous living setting vs placement. Continue to assess patient for changes in above assessment. Monitor for medication needs, pain, and safety concerns. Hourly rounding performed to ensure safe environment.
--- NOTE | 2018-07-17 22:50 | PDOC ---
Exam Note: Wesly Note: Please also refer to the separate dictated note~for this date of service dictated separately.~Patient seen individually. Discussed the patient with Nursing staff reviewed the chart.~Reviewed interim history and current functioning. Reviewed vital signs,~Labs/ Radiology~and current medications noted below. Continue current treatment with the changes noted in the dictated addendum note Assessment: Vital Signs: Vital Signs Date Time Temp Pulse Resp B/P (MAP) Pulse Ox O2 Delivery O2 Flow Rate FiO2 07/17/18 16:40 98.6 83 18 163/78 (106) 98 07/16/18 16:28 Room Air I&O Intake and Output 07/17/18 07:00 Intake Total 1800 ml Balance 1800 ml Intake Oral 1800 ml # Bowel Movements 1 Labs: Laboratory Tests Test 07/17/18 07:24 07/17/18 11:45 07/17/18 17:03 07/17/18 19:19 Glucose (Fingerstick) 229 mg/dL (70-99) H 245 mg/dL (70-99) H 255 mg/dL (70-99) H 248 mg/dL (70-99) H Current Medications: Meds: Current Medications Acetaminophen (Tylenol) 650 mg PRN Q6HRS PRN PO PAIN / TEMP; Start 07/11/18 at 14:45 Multi-Ingredient Ointment (Analgesic [place]) 1 charisse PRN QID PRN TP MUSCLE PAIN; Start 07/11/18 at 14:45 Al Hydroxide/Mg Hydroxide (Mylanta Plus Xs) 15 ml PRN AFTMEALHC PRN PO DYSPEPSIA; Start 07/11/18 at 14:45 Magnesium Hydroxide (Milk Of Magnesia) 2,400 mg PRN QHS PRN PO CONSTIPATION; Start 07/11/18 at 14:45 Lisinopril (Prinivil) 20 mg DAILY PO Last administered on 07/17/18at 07:47; Start 07/12/18 at 09:00 Amlodipine Besylate (Norvasc) 5 mg DAILY PO Last administered on 07/17/18at 07: 46; Start 07/12/18 at 09:00; Stop 07/17/18 at 18:14; Status DC Aspirin (Aspirin Enteric Coated) 81 mg DAILY PO Last administered on 07/17/18at 07:47; Start 07/12/18 at 09:00 Docusate Sodium (Colace) 100 mg BID PO Last administered on 07/17/18 19:27; Start 07/11/18 at 21:00 Donepezil HCl (Aricept) 10 mg QHS PO Last administered on 07/17/18 19:27; Start 07/11/18 at 21:00 Furosemide (Lasix) 40 mg DAILY PO Last administered on 07/17/18 07:45; Start 07/12/18 at 09:00 Polyethylene Glycol (miraLAX) 17 gm PRN DAILY PRN PO CONSTIPATION; Start at 15:45 Pregabalin (Lyrica) 100 mg BID PO Last administered on 07/17/18 19:38; Start 07/11/18 at 21:00 Atorvastatin Calcium (Lipitor) 20 mg DAILY PO Last administered on 07/17/18 07 :45; Start 07/12/18 at 09:00 Clonazepam (KlonoPIN) 0.125 mg PRN QHS PRN PO ANXIETY / AGITATION; Start at 15:45 Metformin HCl (Glucophage) 1,000 mg BIDWMEALS PO Last administered on 16:43; Start 07/11/18 at 17:00 Quetiapine Fumarate (SEROquel) 12.5 mg PRN DAILY PRN PO AGITATION; Start at 16:00 Insulin Human Lispro (HumaLOG) 0-5 UNITS TIDACHC SQ Last administered on at 17:45; Start 07/11/18 at 21:00 Dextrose 12.5 gm PRN Q15MIN PRN IV SEE COMMENTS; Start 07/11/18 at 19:30 Divalproex Sodium (Depakote Sprinkles) 250 mg QHS PO Last administered on 19:28; Start 07/12/18 at 21:00 Bupropion HCl (Wellbutrin Xl) 150 mg DAILY PO Last administered on 07/17/18 07 :46; Start 07/16/18 at 09:00 Mirtazapine (Remeron) 7.5 mg QHS PO Last administered on 07/17/18 19:38; Start 07/17/18 at 21:00 Amlodipine Besylate (Norvasc) 10 mg DAILY PO ; Start 07/18/18 at 09:00 Insulin Human Lispro (HumaLOG) 5 units TIDAC SQ ; Start 07/18/18 at 07:30 Insulin Glargine (Lantus) 10 units QHS SQ ; Start 07/17/18 at 21:00 Active Scripts Active Reported Seroquel (Quetiapine Fumarate) 25 Mg Tablet 12.5 Mg PO PRN DAILY PRN Glucophage (Metformin Hcl) 500 Mg Tablet 1,000 Mg PO BIDWMEALS Lyrica (Pregabalin) 100 Mg Capsule 1 Cap PO BID Miralax (Polyethylene Glycol 3350) 17 Gm Powd.pack 1 Packet PO DAILY PRN Lisinopril 20 Mg Tablet 1 Tab PO DAILY Lasix (Furosemide) 40 Mg Tablet 1 Tab PO DAILY Aricept (Donepezil Hcl) 10 Mg Tablet 1 Tab PO QHS Colace (Docusate Sodium) 100 Mg Capsule 1 Cap PO BID Klonopin (Clonazepam) 0.5 Mg Tablet 0.25 Tab PO HS PRN Atorvastatin Calcium 20 Mg Tablet 20 Mg PO DAILY Aspirin Ec (Aspirin) 81 Mg Tablet.dr 1 Tab PO DAILY Norvasc (Amlodipine Besylate) 5 Mg Tablet 1 Tab PO DAILY I have reviewed the current psychotropics carefully including drug interactions. Risk benefit ratio favors no change other than as noted in my dictated progress note. Diagnosis: Problems: (1) Dementia, vascular, with depression (2) Anxiety disorder (3) Major depressive disorder, recurrent episode (4) Impulse control disorder (5) Mild cognitive impairment DARWIN ISAACS MD Jul 17, 2018 22:50
[2018-07-17] MEDS: INSULIN GLARGINE 300 UNITS/3 ML INSULN.PEN. SQ SCH (23:00)
[2018-07-18 06:12] VITALS: BP 136/67
[2018-07-18 07:09] LABS: BASO # 0.1 x10^3/uL (0.0-0.2); BASO % 1 % (0-3); EOS # 0.3 x10^3/uL (0.0-0.7); EOS % 4 % (0-3); HEMATOCRIT 27.2 % (39.0-53.0); HEMOGLOBIN 9.4 g/dL (13.0-17.5); LYMPH # 1.6 x10^3/uL (1.0-4.8); LYMPH % 21 % (24-48); MEAN CORPUSCULAR HEMOGLOBIN 30 pg (25-35); MEAN CORPUSCULAR HGB CONC 35 g/dL (31-37); MEAN CORPUSCULAR VOLUME 88 fL (79-100); MONO # 0.6 x10^3/uL (0.0-1.1); MONO % 7 % (0-9); NEUT # 5.2 x10^3uL (1.8-7.7); NEUT % 68 % (31-73); PLATELET COUNT 252 x10^3/uL (140-400); RED BLOOD COUNT 3.11 x10^6/uL (4.30-5.70); RED CELL DISTRIBUTION WIDTH 12.5 % (11.5-14.5); WHITE BLOOD COUNT 7.7 x10^3/uL (4.0-11.0)
[2018-07-18 07:13] LABS: ALBUMIN 2.6 g/dL (3.4-5.0); CALCIUM 8.9 mg/dL (8.5-10.1); CREATININE 1.5 mg/dL (0.7-1.3); GFR 46.7; POTASSIUM 4.5 mmol/L (3.5-5.1); TOTAL BILIRUBIN 0.2 mg/dL (0.2-1.0); TOTAL PROTEIN 5.3 g/dL (6.4-8.2)
[2018-07-18] MEDS: INSULIN LISPRO 300 UNITS/3 ML INSULN.PEN. SQ SCH ×7 (07:30→19:31)
[2018-07-18] MEDS: ASPIRIN ENTERIC COATED 81 MG TABLET.DR. PO SCH (07:51)
[2018-07-18] MEDS: FUROSEMIDE 40 MG TABLET PO SCH (07:51)
[2018-07-18] MEDS: DOCUSATE SODIUM 100 MG CAPSULE PO SCH ×2 (07:51→19:12)
[2018-07-18] MEDS: buPROPion XL 150 MG TAB.ER.24H PO SCH (07:51)
[2018-07-18] MEDS: metFORMIN 500 MG TABLET PO SCH ×2 (07:51→16:33)
[2018-07-18] MEDS: ATORVASTATIN CALCIUM 20 MG TABLET PO SCH (07:51)
[2018-07-18] MEDS: PREGABALIN 50 MG CAPSULE PO SCH ×2 (07:52→19:31)
[2018-07-18] MEDS: LISINOPRIL 20 MG TABLET PO SCH (07:53)
[2018-07-18] MEDS ORDERED: amLODIPine BESYLATE 5 MG TABLET PO SCH (09:00)
--- NOTE | 2018-07-18 09:16 | NUR ---
WEEKLY ACTIVITY THERAPY NOTE Date of Admission: 07/11/2018 Date of AT Assessment: 07/14/2018 Goal aimed: to increase socialization and engagement Initial goal: Pt. will participate in all Activity Therapy groups he is invited to. Weekly progress towards goal: achieved Group participation level: moderate to full Behaviors observed: usually in group the entire time, rests during exercise groups, more prompting as week goes on, distracted at times, expresses concerns with restroom assistance Plan: no change to goal
--- NOTE | 2018-07-18 09:30 | NUR ---
WEEKLY NOTE: Pt participated in tx team in person and his dtr, Reena, participated via telephone. Pt is eating 90% and averaging 5 hours of sleep. Pt is demanding staff complete his cares and staff is telling pt to do cares for himself, especially if he wants to discharge home. Pt does participate in group therapies and will also be encouraged to do some things on his own. Pt dtr is requesting that pt MRI be looked at and questioned pt diagnosis. 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 Pt memory is reasonable. Pt DILIA will be transferred next week and will look towards discharging to a rehabilitation facility to increase his physical status.
--- NOTE | 2018-07-18 14:30 | NUR ---
Pt has been calm, cooperative, and pleasant. Pt has been sitting in day room most of the day participating in activities. Pt has been asking about a [employer] shirt that supposedly was taken to laundry last night but he has not gotten it back yet. Pt c/o pain between buttocks. Pt has redness and calazime lotion is being applied and left open to air.
--- NOTE | 2018-07-18 14:34 | NUR ---
Behavior Intervention Response and Plan: BIRP Note: Behavior: Assumed Care of patient, patient located in Day Room at shift change. Patient exhibited the following behavior Calm, Social, Cooperative. Brief assessment on rounds of vital signs, medication needs, lab studies, and pain. Treatment plan problems: alteration in thought process and fall risk. Intervention: Patient assessed and the following interventions initiated safety checks 15 Minute Checks Cognitive Assessment , Head to toe Assessment , Medications. Response: After interactions and interventions patient responded in the following manner, Appropriate , Social ,Cooperative. Continue to assess behaviors and condition will continue to monitor throughout the shift as needed. Patient educated on ADL's, and hand hygiene. 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 Continue to assess patient for changes in above assessment. Monitor for medication needs, pain, and safety concerns. Hourly rounding performed to ensure safe environment.
[2018-07-18 16:03] VITALS: BP 135/77
[2018-07-18] MEDS: DONEPEZIL HCL 10 MG TABLET PO SCH (19:12)
[2018-07-18] MEDS: MIRTAZAPINE 7.5 MG TABLET. PO SCH (19:12)
[2018-07-18] MEDS: DIVALPROEX 125 MG CAP.SPRINK PO SCH (19:13)
--- NOTE | 2018-07-18 19:30 | NUR ---
Behavior Intervention Response and Plan: BIRP Note: Behavior: Assumed Care of patient, patient located in Day Room at shift change. Patient exhibited the following behavior Calm, Social, Cooperative. Brief assessment on rounds of vital signs, medication needs, lab studies, and pain. Treatment plan problems . Intervention: Patient assessed and the following interventions initiated safety checks 15 Minute Checks Cognitive Assessment , Head to toe Assessment , Medications. Response: After interactions and interventions patient responded in the following manner, Drowsy , Disorganized ,Cooperative. Continue to assess behaviors and condition will continue to monitor throughout the shift as needed. Patient educated on ADL's, and hand hygiene. Plan: Continue to monitor Master Treatment Plan for patient's progress toward short term goals of Decreased Anxiety, Decreased Anxiety, care home goals to return to previous living setting vs placement. Continue to assess patient for changes in above assessment. Monitor for medication needs, pain, and safety concerns. Hourly rounding performed to ensure safe environment.
[2018-07-18] MEDS: INSULIN GLARGINE 300 UNITS/3 ML INSULN.PEN. SQ SCH (19:33)
--- NOTE | 2018-07-18 20:02 | CONS ---
DATE OF CONSULTATION: REASON FOR CONSULTATION: Medical management. HISTORY OF PRESENT ILLNESS: The patient is a 68-year-old male patient who was admitted to [facility] at the request of staff from [facility]. He was seen in the ER for at least 5 times in the last few days prior to admission complaining of leg pain and also some agitation, confusion with his thinking. He did have also visual hallucination, expresses suicidal ideation and unable to sleep at times, hyperverbal. All these in a background of dementia, vascular with depression and he was admitted to [facility] for inpatient psychiatric stabilization. PAST MEDICAL HISTORY: Significant for type 2 diabetes mellitus, renal insufficiency, stage 3 chronic kidney disease, alcohol abuse, peripheral neuropathy, hypertension, anemia, gait impairment, however the patient is able to walk with a walker. PAST SURGICAL HISTORY: Unremarkable. FAMILY HISTORY: Noncontributory. SOCIAL HISTORY: He is retired. 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 He has twice. He has 5 children from his first marriage. He apparently does not smoke, drink alcohol, or use recreational drugs. PHYSICAL EXAMINATION: GENERAL: On examining him, he looked well and was clearly in no apparent respiratory distress. No pallor, jaundice, cyanosis, or thyromegaly. No jugular venous distension. No lower limb edema. VITAL SIGNS: His heart rate was 80, blood pressure was 150/78, temperature was 98, respiratory rate 20, and oxygen saturation was 95%. HEAD, EYES, EARS, NOSE, AND THROAT: Showed normocephalic, atraumatic. NECK: Supple. HEART: Showed normal first and second sounds. No gallop, rub, or murmur. CHEST: Clear to auscultation. No crepitation or rhonchi. ABDOMEN: Distended, soft, nontender. No guarding or rigidity. No organomegaly. All hernial orifices are intact. Bowel sounds normal. NEUROLOGIC: He was awake, alert, but confused. All his cranial nerves are intact. EXTREMITIES: He moves extremities without difficulty, ambulates with a walker. LABORATORY DATA: His lab work on admission showed white cell count of 9100, hemoglobin 11, hematocrit 31, MCV 88, and platelet count of 311,000. His chemistry showed serum sodium 136, potassium 4.4, chloride 101, bicarbonate 26, anion gap of 9, BUN 38, creatinine 2, estimated GFR was 33 mL per minute. His glucose was 252. His hemoglobin A1c was 7.1%. Calcium was 8.5, magnesium was 1.7. His total bilirubin, AST, ALT, alkaline phosphatase were normal. Total protein was 6, albumin 3. Serum triglycerides were 323. Total cholesterol 140, LDL was 40, VLDL was 64, HDL was 36, the ratio was 3. His TSH, total T4, and total T3 were all normal. Urinalysis was essentially unremarkable and his treponema pallidum antibodies were negative. IMPRESSION: In summary, this is a 68-year-old male patient who was admitted as a referral from [facility] where he was seen about 5 times in the last few days complaining of leg pain and also some agitation and confusion. He also recently had visual hallucination, expresses suicidal ideation and was unable to sleep at times and hyperverbal this in a background of dementia, vascular with depression. Medically, he has multiple medical problems including type 2 diabetes, chronic kidney disease, peripheral neuropathy, hypertension, anemia, unsteady gait, and also history of alcohol abuse. All in all, he seemed to be medically stable. Thank you, Dr. Franklin, for allowing me to participate in the care of this patient. ROBIN BEE MD DR: АННА/vlad JOB#: [id number] / [id number]
--- NOTE | 2018-07-18 22:35 | PDOC ---
Exam Note: Wesly Note: Please also refer to the separate dictated note~for this date of service dictated separately.~Patient seen individually. Discussed the patient with Nursing staff reviewed the chart.~Reviewed interim history and current functioning. Reviewed vital signs,~Labs/ Radiology~and current medications noted below. Continue current treatment with the changes noted in the dictated addendum note Assessment: Vital Signs: Vital Signs Date Time Temp Pulse Resp B/P (MAP) Pulse Ox O2 Delivery O2 Flow Rate FiO2 07/18/18 16:03 97.6 83 18 135/77 (96) 100 Room Air I&O Intake and Output 07/18/18 07:00 Intake Total 2400 ml Balance 2400 ml Intake Oral 2400 ml # Bowel Movements 1 Labs: Laboratory Tests Test 07/18/18 06:38 07/18/18 07:25 07/18/18 11:33 07/18/18 17:13 White Blood Count 7.7 x10^3/uL (4.0-11.0) Red Blood Count 3.11 x10^6/uL (4.30-5.70) L Hemoglobin 9.4 g/dL (13.0-17.5) L Hematocrit 27.2 % (39.0-53.0) L Mean Corpuscular Volume 88 fL (79-100) Mean Corpuscular Hemoglobin 30 pg (25-35) Mean Corpuscular Hemoglobin Concent 35 g/dL (31-37) Red Cell Distribution Width 12.5 % (11.5-14.5) Platelet Count 252 x10^3/uL (140-400) Neutrophils (%) (Auto) 68 % (31-73) Lymphocytes (%) (Auto) 21 % (24-48) L Monocytes (%) (Auto) 7 % (0-9) Eosinophils (%) (Auto) 4 % (0-3) H Basophils (%) (Auto) 1 % (0-3) Neutrophils # (Auto) 5.2 x10^3uL (1.8-7.7) Lymphocytes # (Auto) 1.6 x10^3/uL (1.0-4.8) Monocytes # (Auto) 0.6 x10^3/uL (0.0-1.1) Eosinophils # (Auto) 0.3 x10^3/uL (0.0-0.7) Basophils # (Auto) 0.1 x10^3/uL (0.0-0.2) Sodium Level 143 mmol/L (136-145) Potassium Level 4.5 mmol/L (3.5-5.1) Chloride Level 105 mmol/L (98-107) Carbon Dioxide Level 33 mmol/L (21-32) H Anion Gap 5 (6-14) L Blood Urea Nitrogen 35 mg/dL (8-26) H Creatinine 1.5 mg/dL (0.7-1.3) H Estimated GFR (Cockcroft-Gault) 46.7 BUN/Creatinine Ratio 23 (6-20) H Glucose Level 113 mg/dL (70-99) H Calcium Level 8.9 mg/dL (8.5-10.1) Total Bilirubin 0.2 mg/dL (0.2-1.0) Aspartate Amino Transferase (AST) 28 U/L (15-37) Alanine Aminotransferase (ALT) 25 U/L (16-63) Alkaline Phosphatase 67 U/L (46-116) Total Protein 5.3 g/dL (6.4-8.2) L Albumin 2.6 g/dL (3.4-5.0) L Albumin/Globulin Ratio 1.0 (1.0-1.7) Glucose (Fingerstick) 115 mg/dL (70-99) H 200 mg/dL (70-99) H 198 mg/dL (70-99) H Test 07/18/18 19:20 Glucose (Fingerstick) 211 mg/dL (70-99) H Current Medications: Meds: Current Medications Acetaminophen (Tylenol) 650 mg PRN Q6HRS PRN PO PAIN / TEMP; Start 07/11/18 at 14:45 Multi-Ingredient Ointment (Analgesic [place]) 1 charisse PRN QID PRN TP MUSCLE PAIN; Start 07/11/18 at 14:45 Al Hydroxide/Mg Hydroxide (Mylanta Plus Xs) 15 ml PRN AFTMEALHC PRN PO DYSPEPSIA; Start 07/11/18 at 14:45 Magnesium Hydroxide (Milk Of Magnesia) 2,400 mg PRN QHS PRN PO CONSTIPATION; Start 07/11/18 at 14:45 Lisinopril (Prinivil) 20 mg DAILY PO Last administered on 3/21/19at 07:53; Start 07/12/18 at 09:00 Amlodipine Besylate (Norvasc) 5 mg DAILY PO Last administered on 07/17/18 07: 46; Start 07/12/18 at 09:00; Stop 07/17/18 at 18:14; Status DC Aspirin (Aspirin Enteric Coated) 81 mg DAILY PO Last administered on 07/18/18 07:51; Start 07/12/18 at 09:00 Docusate Sodium (Colace) 100 mg BID PO Last administered on 07/18/18 19:12; Start 07/11/18 at 21:00 Donepezil HCl (Aricept) 10 mg QHS PO Last administered on 07/18/18 19:12; Start 07/11/18 at 21:00 Furosemide (Lasix) 40 mg DAILY PO Last administered on 07/18/18 07:51; Start 07/12/18 at 09:00 Polyethylene Glycol (miraLAX) 17 gm PRN DAILY PRN PO CONSTIPATION; Start at 15:45 Pregabalin (Lyrica) 100 mg BID PO Last administered on 07/18/18 19:31; Start 07/11/18 at 21:00 Atorvastatin Calcium (Lipitor) 20 mg DAILY PO Last administered on 07/18/18 07 :51; Start 07/12/18 at 09:00 Clonazepam (KlonoPIN) 0.125 mg PRN QHS PRN PO ANXIETY / AGITATION; Start at 15:45 Metformin HCl (Glucophage) 1,000 mg BIDWMEALS PO Last administered on at 16:33; Start 07/11/18 at 17:00 Quetiapine Fumarate (SEROquel) 12.5 mg PRN DAILY PRN PO AGITATION; Start at 16:00 Insulin Human Lispro (HumaLOG) 0-5 UNITS TIDACHC SQ Last administered on 17:20; Start 07/11/18 at 21:00 Dextrose 12.5 gm PRN Q15MIN PRN IV SEE COMMENTS; Start 07/11/18 at 19:30 Divalproex Sodium (Depakote Sprinkles) 250 mg QHS PO Last administered on 19:13; Start 07/12/18 at 21:00 Bupropion HCl (Wellbutrin Xl) 150 mg DAILY PO Last administered on 07/18/18at 07 :51; Start 07/16/18 at 09:00 Mirtazapine (Remeron) 7.5 mg QHS PO Last administered on 07/18/18at 19:12; Start 07/17/18 at 21:00 Amlodipine Besylate (Norvasc) 10 mg DAILY PO Last administered on 07/18/18at 07: 54; Start 07/18/18 at 09:00; Stop 07/18/18 at 18:58; Status DC Insulin Human Lispro (HumaLOG) 5 units TIDAC SQ Last administered on 07/18/18at 17:19; Start 07/18/18 at 07:30 Insulin Glargine (Lantus) 10 units QHS SQ Last administered on 07/18/18at 19:33 ; Start 07/17/18 at 21:00 Metolazone (Zaroxolyn) 2.5 mg 3X/WEEK PO ; Start 07/19/18 at 09:00 Active Scripts Active Reported Seroquel (Quetiapine Fumarate) 25 Mg Tablet 12.5 Mg PO PRN DAILY PRN Glucophage (Metformin Hcl) 500 Mg Tablet 1,000 Mg PO BIDWMEALS Lyrica (Pregabalin) 100 Mg Capsule 1 Cap PO BID Miralax (Polyethylene Glycol 3350) 17 Gm Powd.pack 1 Packet PO DAILY PRN Lisinopril 20 Mg Tablet 1 Tab PO DAILY Lasix (Furosemide) 40 Mg Tablet 1 Tab PO DAILY Aricept (Donepezil Hcl) 10 Mg Tablet 1 Tab PO QHS Colace (Docusate Sodium) 100 Mg Capsule 1 Cap PO BID Klonopin (Clonazepam) 0.5 Mg Tablet 0.25 Tab PO HS PRN Atorvastatin Calcium 20 Mg Tablet 20 Mg PO DAILY Aspirin Ec (Aspirin) 81 Mg Tablet. 1 Tab PO DAILY Norvasc (Amlodipine Besylate) 5 Mg Tablet 1 Tab PO DAILY I have reviewed the current psychotropics carefully including drug interactions. Risk benefit ratio favors no change other than as noted in my dictated progress note. Diagnosis: Problems: (1) Dementia, vascular, with depression (2) Anxiety disorder (3) Major depressive disorder, recurrent episode (4) Impulse control disorder (5) Mild cognitive impairment DARWIN ISAACS MD Jul 18, 2018 22:35
[2018-07-19 06:17] VITALS: BP 167/76
[2018-07-19] MEDS: INSULIN LISPRO 300 UNITS/3 ML INSULN.PEN. SQ SCH ×7 (07:30→19:49)
[2018-07-19] MEDS: PREGABALIN 50 MG CAPSULE PO SCH ×2 (08:16→19:49)
[2018-07-19] MEDS: ATORVASTATIN CALCIUM 20 MG TABLET PO SCH (08:16)
[2018-07-19] MEDS: DOCUSATE SODIUM 100 MG CAPSULE PO SCH ×2 (08:16→19:46)
[2018-07-19] MEDS: FUROSEMIDE 40 MG TABLET PO SCH (08:17)
[2018-07-19] MEDS: metFORMIN 500 MG TABLET PO SCH ×2 (08:17→16:17)
[2018-07-19] MEDS: buPROPion XL 150 MG TAB.ER.24H PO SCH (08:17)
[2018-07-19] MEDS: ASPIRIN ENTERIC COATED 81 MG TABLET.DR. PO SCH (08:17)
[2018-07-19] MEDS: LISINOPRIL 20 MG TABLET PO SCH (08:18)
[2018-07-19] MEDS: metOLazone 2.5 MG TABLET PO SCH (08:27)
--- NOTE | 2018-07-19 14:09 | PN ---
DATE: 07/17/2018 PSYCHIATRIC PROGRESS NOTE This late entry 07/17/2018 covers elements not covered in my initial note. SUBJECTIVE: I met with the patient in the evening. The patient slept 4 and 3/4 hours previous night. He remains somewhat anxious, depressed, but minimizes this. He has a tendency to ask for assistance even for things he can to himself. We processed this since he lives at home by himself. He needs to do as much as he can to maximize his functionality. He has otherwise been pleasant. REVIEW OF SYSTEMS: Ambulation impaired with walker. No CV, , pulmonary, eye system symptoms on review. MENTAL STATUS EXAM: Oriented to himself and situation. Speech has some latency, often responses monosyllabic. Abstraction fair, computation impaired, language function intact, attention span short. Mood and affect somewhat dysphoric, anxious, so he minimizes the depression. LABORATORY DATA: Reviewed. IMPRESSION: Major depressive disorder, recurrent; anxiety disorder, unspecified; cognitive disorder, unspecified. PLAN: Start Remeron 7.5 mg p.o. at bedtime to help with insomnia and anxiety. Continue rest unchanged from initial note. MAN Dyan ISACAS MD DR: GLORIA/vlad JOB#: [id number] / [id number]
--- NOTE | 2018-07-19 14:15 | PN ---
DATE: 07/18/2018 PSYCHIATRIC PROGRESS NOTE This late entry 07/18/2018 covers elements not covered in my initial note. SUBJECTIVE: I met with the patient in the evening and staffed at a treatment team meeting with the entire team in the morning with the patient attending the treatment team meeting and the patient's daughter, Reena, attended as well. Reviewed the patient's history, diagnosis, treatment, and disposition plans. Daughter indicated the patient had MRI at [facility] and we will obtain those records for comparison to prior scans to look for any changes. Sleeping average 5 hours, appetite 90%. REVIEW OF SYSTEMS: Ambulation impaired with walker. No CV, , pulmonary, eye system symptoms on review. MENTAL STATUS EXAM: Oriented to himself and situation. Speech has some latency, coherent, often responses monosyllabic. Abstraction fair, computation impaired, language function intact. Mood and affect somewhat dysphoric, anxious, though he minimizes being depressed. LABORATORY DATA: Reviewed. IMPRESSION: Major depressive disorder, recurrent, in partial remission; anxiety disorder, unspecified; mild cognitive impairment. Rest unchanged. PLAN: Increase the Wellbutrin-XL from 150 mg a day to 300 mg a day. Reviewed the MRI, comparison per Radiology after we get those records. Rest unchanged from initial note. DARWIN ISAACS MD DR: GLORIA/vlad JOB#: [id number] / [id number]
--- NOTE | 2018-07-19 14:18 | NUR ---
Follow up call placed to Reena, daughter/POA, to inquire about post acute rehab facilities that she would like SW to send referrals to as tentative discharge date for Michael is the latter part of next week. Left detailed message for Reena with request for return phone call. Awaiting return call.
--- NOTE | 2018-07-19 14:33 | NUR ---
Call placed to [facility] and referral faxed as Reena/daughter/ENE had expressed interest in Michael transferring there for in patient rehabilitation once discharged from [facility]. Left message for Marion, sales account director at [facility], awaiting return phone call. Follow up call placed to [facility] in [place] as they had called on 07/18/18 as they had received a referral from "April Rosado" on Michael. [facility] has independent senior apartments, assisted living apartments, and memory care apartments. Will review with Reena/daughter/ENE when she calls this worker back.
--- NOTE | 2018-07-19 15:48 | NUR ---
Received return phone call from Eric at [facility]. Eric indicated he will review referral information. NICHOL requested an admit decision by Sunday of next week so as to continue to prepare for upcoming discharge. Eric indicated he would call this SW on 07/22/18 with admit decision. 1:1 with Michael in the day room. Updated him on possible rehab stay once discharged from [facility]. Michael expresses the desire to return to his rental home and resume driving. Explained to Michael that his daughter was researching long term communities where he could receive support with his cares. He expressed understanding.
--- NOTE | 2018-07-19 15:55 | NUR ---
Pt has been calm, cooperative, and compliant. Pt is very social and engages in conversation when approached. Pt states to not have pain. Pt is still edematous in BLE. Pt is now on two medications to help with edema.
--- NOTE | 2018-07-19 15:57 | NUR ---
Behavior Intervention Response and Plan: BIRP Note: Behavior: Assumed Care of patient, patient located in Day Room at shift change. Patient exhibited the following behavior Calm, Social, Cooperative. Brief assessment on rounds of vital signs, medication needs, lab studies, and pain. Treatment plan problems: alteration in mood and fall risk. Intervention: Patient assessed and the following interventions initiated safety checks 15 Minute Checks Cognitive Assessment , Head to toe Assessment , Oral Hydration. Response: After interactions and interventions patient responded in the following manner, Appropriate , Interactive ,Social. Continue to assess behaviors and condition will continue to monitor throughout the shift as needed. Patient educated on ADL's, and hand hygiene. 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 Continue to assess patient for changes in above assessment. Monitor for medication needs, pain, and safety concerns. Hourly rounding performed to ensure safe environment.
[2018-07-19 16:08] VITALS: BP 160/81
[2018-07-19] MEDS: DONEPEZIL HCL 10 MG TABLET PO SCH (19:46)
[2018-07-19] MEDS: DIVALPROEX 125 MG CAP.SPRINK PO SCH (19:46)
[2018-07-19] MEDS: MIRTAZAPINE 7.5 MG TABLET. PO SCH (19:46)
[2018-07-19] MEDS: INSULIN GLARGINE 300 UNITS/3 ML INSULN.PEN. SQ SCH (19:48)
--- NOTE | 2018-07-19 20:00 | NUR ---
Behavior Intervention Response and Plan: BIRP Note: Behavior: Assumed Care of patient, patient located in Hallway at shift change. Patient exhibited the following behavior Interactive, Calm, Disorganized. Brief assessment on rounds of vital signs, medication needs, lab studies, and pain. Treatment plan problems 1. Intervention: Patient assessed and the following interventions initiated safety checks 15 Minute Checks Cognitive Assessment , Head to toe Assessment , Medications. Response: After interactions and interventions patient responded in the following manner, Interactive , Calm ,Motor Retardation. Continue to assess behaviors and condition will continue to monitor throughout the shift as needed. Patient educated on ADL's, and hand hygiene. 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 Continue to assess patient for changes in above assessment. Monitor for medication needs, pain, and safety concerns. Hourly rounding performed to ensure safe environment.
--- NOTE | 2018-07-19 22:41 | PDOC ---
Exam Note: Wesly Note: Please also refer to the separate dictated note~for this date of service dictated separately.~Patient seen individually. Discussed the patient with Nursing staff reviewed the chart.~Reviewed interim history and current functioning. Reviewed vital signs,~Labs/ Radiology~and current medications noted below. Continue current treatment with the changes noted in the dictated addendum note Assessment: Vital Signs: Vital Signs Date Time Temp Pulse Resp B/P (MAP) Pulse Ox O2 Delivery O2 Flow Rate FiO2 07/19/18 16:08 97.5 76 18 160/81 (107) 99 Room Air I&O Intake and Output 07/19/18 07:00 Intake Total 1460 ml Balance 1460 ml Intake Oral 1460 ml Labs: Laboratory Tests Test 07/19/18 07:08 07/19/18 13:07 07/19/18 16:55 07/19/18 19:10 Glucose (Fingerstick) 109 mg/dL (70-99) H 152 mg/dL (70-99) H 188 mg/dL (70-99) H 231 mg/dL (70-99) H Current Medications: Meds: Current Medications Acetaminophen (Tylenol) 650 mg PRN Q6HRS PRN PO PAIN / TEMP; Start 07/11/18 at 14:45 Multi-Ingredient Ointment (Analgesic [place]) 1 charisse PRN QID PRN TP MUSCLE PAIN; Start 07/11/18 at 14:45 Al Hydroxide/Mg Hydroxide (Mylanta Plus Xs) 15 ml PRN AFTMEALHC PRN PO DYSPEPSIA; Start 07/11/18 at 14:45 Magnesium Hydroxide (Milk Of Magnesia) 2,400 mg PRN QHS PRN PO CONSTIPATION; Start 07/11/18 at 14:45 Lisinopril (Prinivil) 20 mg DAILY PO Last administered on 07/19/18at 08:18; Start 07/12/18 at 09:00 Amlodipine Besylate (Norvasc) 5 mg DAILY PO Last administered on 07/17/18at 07: 46; Start 07/12/18 at 09:00; Stop 07/17/18 at 18:14; Status DC Aspirin (Aspirin Enteric Coated) 81 mg DAILY PO Last administered on 07/19/18at 08:17; Start 07/12/18 at 09:00 Docusate Sodium (Colace) 100 mg BID PO Last administered on 07/19/18 19:46; Start 07/11/18 at 21:00 Donepezil HCl (Aricept) 10 mg QHS PO Last administered on 07/19/18 19:46; Start 07/11/18 at 21:00 Furosemide (Lasix) 40 mg DAILY PO Last administered on 07/19/18 08:17; Start 07/12/18 at 09:00 Polyethylene Glycol (miraLAX) 17 gm PRN DAILY PRN PO CONSTIPATION; Start at 15:45 Pregabalin (Lyrica) 100 mg BID PO Last administered on 07/19/18 19:49; Start 07/11/18 at 21:00 Atorvastatin Calcium (Lipitor) 20 mg DAILY PO Last administered on 07/19/18 08 :16; Start 07/12/18 at 09:00 Clonazepam (KlonoPIN) 0.125 mg PRN QHS PRN PO ANXIETY / AGITATION; Start at 15:45 Metformin HCl (Glucophage) 1,000 mg BIDWMEALS PO Last administered on 16:17; Start 07/11/18 at 17:00 Quetiapine Fumarate (SEROquel) 12.5 mg PRN DAILY PRN PO AGITATION; Start at 16:00 Insulin Human Lispro (HumaLOG) 0-5 UNITS TIDACHC SQ Last administered on 17:09; Start 07/11/18 at 21:00 Dextrose 12.5 gm PRN Q15MIN PRN IV SEE COMMENTS; Start 07/11/18 at 19:30 Divalproex Sodium (Depakote Sprinkles) 250 mg QHS PO Last administered on 19:46; Start 07/12/18 at 21:00 Bupropion HCl (Wellbutrin Xl) 150 mg DAILY PO Last administered on 07/19/18 08 :17; Start 07/16/18 at 09:00 Mirtazapine (Remeron) 7.5 mg QHS PO Last administered on 07/19/18 19:46; Start 07/17/18 at 21:00 Amlodipine Besylate (Norvasc) 10 mg DAILY PO Last administered on 3/21/19at 07: 54; Start 07/18/18 at 09:00; Stop 07/18/18 at 18:58; Status DC Insulin Human Lispro (HumaLOG) 5 units TIDAC SQ Last administered on 07/19/18at 17:08; Start 07/18/18 at 07:30 Insulin Glargine (Lantus) 10 units QHS SQ Last administered on 07/19/18at 19:48 ; Start 07/17/18 at 21:00 Metolazone (Zaroxolyn) 2.5 mg 3X/WEEK PO Last administered on 07/19/18at 08:27; Start 07/19/18 at 09:00 Active Scripts Active Reported Seroquel (Quetiapine Fumarate) 25 Mg Tablet 12.5 Mg PO PRN DAILY PRN Glucophage (Metformin Hcl) 500 Mg Tablet 1,000 Mg PO BIDWMEALS Lyrica (Pregabalin) 100 Mg Capsule 1 Cap PO BID Miralax (Polyethylene Glycol 3350) 17 Gm Powd.pack 1 Packet PO DAILY PRN Lisinopril 20 Mg Tablet 1 Tab PO DAILY Lasix (Furosemide) 40 Mg Tablet 1 Tab PO DAILY Aricept (Donepezil Hcl) 10 Mg Tablet 1 Tab PO QHS Colace (Docusate Sodium) 100 Mg Capsule 1 Cap PO BID Klonopin (Clonazepam) 0.5 Mg Tablet 0.25 Tab PO HS PRN Atorvastatin Calcium 20 Mg Tablet 20 Mg PO DAILY Aspirin Ec (Aspirin) 81 Mg Tablet. 1 Tab PO DAILY Norvasc (Amlodipine Besylate) 5 Mg Tablet 1 Tab PO DAILY I have reviewed the current psychotropics carefully including drug interactions. Risk benefit ratio favors no change other than as noted in my dictated progress note. Diagnosis: Problems: (1) Dementia, vascular, with depression (2) Anxiety disorder (3) Major depressive disorder, recurrent episode (4) Impulse control disorder (5) Mild cognitive impairment DARWIN ISAACS MD Jul 19, 2018 22:41
[2018-07-20 05:52] VITALS: BP 157/70
[2018-07-20] MEDS: INSULIN LISPRO 300 UNITS/3 ML INSULN.PEN. SQ SCH ×7 (07:30→20:34)
[2018-07-20] MEDS: ASPIRIN ENTERIC COATED 81 MG TABLET.DR. PO SCH (08:24)
[2018-07-20] MEDS: DOCUSATE SODIUM 100 MG CAPSULE PO SCH ×2 (08:24→20:44)
[2018-07-20] MEDS: FUROSEMIDE 40 MG TABLET PO SCH (08:24)
[2018-07-20] MEDS: ATORVASTATIN CALCIUM 20 MG TABLET PO SCH (08:24)
[2018-07-20] MEDS: metFORMIN 500 MG TABLET PO SCH ×2 (08:24→16:57)
[2018-07-20] MEDS: LISINOPRIL 20 MG TABLET PO SCH (08:24)
[2018-07-20] MEDS: buPROPion XL 150 MG TAB.ER.24H PO SCH (08:25)
[2018-07-20] MEDS: PREGABALIN 50 MG CAPSULE PO SCH ×2 (08:26→20:32)
--- NOTE | 2018-07-20 12:25 | NUR ---
Pt is cooperative, calm, compliant. No agitation, aggression, hallucinations or delusions. Pt is social and compliant with medication and assessments.
--- NOTE | 2018-07-20 13:57 | PN ---
DATE: 07/19/2018 PSYCHIATRIC PROGRESS NOTE This late entry for 07/19/2018 covers elements not covered in my initial note. SUBJECTIVE: Met with the patient in the evening. The patient slept 6-1/2 hours previous night. He remains somewhat anxious, withdrawn with some short-term memory deficits, but reasonable orientation. REVIEW OF SYSTEMS: No CV, , pulmonary, eye system symptoms on review. Gait is unsteady with walker. MENTAL STATUS EXAM: Reasonably oriented. Speech coherent. Abstraction fair, computation impaired, language function intact. Attention span short. Mood and affect is somewhat withdrawn. LABORATORY DATA: Reviewed. IMAGING STUDIES: I have reviewed the patient's CT head, which shows minimal to mild age-related atrophy, small vessel ischemic disease, right base ganglia and prior lacunar infarct within the right basal ganglia were noted ____ another CT head for comparison. IMPRESSION: Unchanged from initial note. PLAN: Unchanged from initial note and we will repeat CT head. DARWIN ISAACS MD DR: GLORIA/vlad JOB#: [id number] / [id number]
--- NOTE | 2018-07-20 14:04 | RAD ---
CT HEAD WO CONTRAST History: mental status change Comparison: None. Technique: Noncontrast CT imaging was performed of the head. Exposure: One or more of the following individualized dose reduction techniques were utilized for this examination: 1. Automated exposure control 2. Adjustment of the mA and/or kV according to patient size 3. Use of iterative reconstruction technique. Findings: No acute extra-axial or parenchymal hemorrhage is identified. There is no significant intra-axial mass effect, midline shift, or extra-axial fluid collection. The uriostegui-white differentiation of the major vascular territories is preserved. Ventricular size is within normal limits. There is mild supratentorial involutional change. The mastoid air cells and the visualized paranasal sinuses are aerated. No acute calvarial abnormality is identified. Impression: 1. No acute intracranial abnormality is identified. There is mild supratentorial involutional change. Electronically signed by: Obi Gamez MD (07/20/2018 2:02 PM) [facility]
--- NOTE | 2018-07-20 14:40 | NUR ---
When coming out of his room pt stopped, looked at nurse standing at the nurses station and stated "bitch." then walked into the dayroom.
[2018-07-20 16:27] VITALS: BP 160/74
--- NOTE | 2018-07-20 19:45 | NUR ---
Behavior Intervention Response and Plan: BIRP Note: Behavior: Assumed Care of patient, patient located in Day Room at shift change. Patient exhibited the following behavior Calm, Interactive, Cooperative. Brief assessment on rounds of vital signs, medication needs, lab studies, and pain. Treatment plan problems . Intervention: Patient assessed and the following interventions initiated safety checks 15 Minute Checks Cognitive Assessment , Head to toe Assessment , Medications. Response: After interactions and interventions patient responded in the following manner, Drowsy , Calm ,Interactive. Continue to assess behaviors and condition will continue to monitor throughout the shift as needed. Patient educated on ADL's, and hand hygiene. 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 Continue to assess patient for changes in above assessment. Monitor for medication needs, pain, and safety concerns. Hourly rounding performed to ensure safe environment.
[2018-07-20] MEDS: DIVALPROEX 125 MG CAP.SPRINK PO SCH (20:31)
[2018-07-20] MEDS: MIRTAZAPINE 7.5 MG TABLET. PO SCH (20:31)
[2018-07-20] MEDS: DONEPEZIL HCL 10 MG TABLET PO SCH (20:32)
[2018-07-20] MEDS: INSULIN GLARGINE 300 UNITS/3 ML INSULN.PEN. SQ SCH (20:33)
--- NOTE | 2018-07-20 23:06 | PDOC ---
Exam Note: Wesly Note: Please also refer to the separate dictated note~for this date of service dictated separately.~Patient seen individually. Discussed the patient with Nursing staff reviewed the chart.~Reviewed interim history and current functioning. Reviewed vital signs,~Labs/ Radiology~and current medications noted below. Continue current treatment with the changes noted in the dictated addendum note Assessment: Vital Signs: Vital Signs Date Time Temp Pulse Resp B/P (MAP) Pulse Ox O2 Delivery O2 Flow Rate FiO2 07/20/18 16:27 98.4 76 20 160/74 (102) 99 Room Air I&O Intake and Output 07/20/18 07:00 Intake Total 1000 ml Balance 1000 ml Intake Oral 1000 ml Labs: Laboratory Tests Test 07/20/18 07:20 07/20/18 11:38 07/20/18 16:24 07/20/18 19:42 Glucose (Fingerstick) 144 mg/dL (70-99) H 163 mg/dL (70-99) H 193 mg/dL (70-99) H 169 mg/dL (70-99) H Current Medications: Meds: Current Medications Acetaminophen (Tylenol) 650 mg PRN Q6HRS PRN PO PAIN / TEMP; Start 07/11/18 at 14:45 Multi-Ingredient Ointment (Analgesic [place]) 1 charisse PRN QID PRN TP MUSCLE PAIN; Start 07/11/18 at 14:45 Al Hydroxide/Mg Hydroxide (Mylanta Plus Xs) 15 ml PRN AFTMEALHC PRN PO DYSPEPSIA; Start 07/11/18 at 14:45 Magnesium Hydroxide (Milk Of Magnesia) 2,400 mg PRN QHS PRN PO CONSTIPATION; Start 07/11/18 at 14:45 Lisinopril (Prinivil) 20 mg DAILY PO Last administered on 07/20/18at 08:24; Start 07/12/18 at 09:00 Amlodipine Besylate (Norvasc) 5 mg DAILY PO Last administered on 07/17/18at 07: 46; Start 07/12/18 at 09:00; Stop 07/17/18 at 18:14; Status DC Aspirin (Aspirin Enteric Coated) 81 mg DAILY PO Last administered on 07/20/18at 08:24; Start 07/12/18 at 09:00 Docusate Sodium (Colace) 100 mg BID PO Last administered on 07/20/18 20:44; Start 07/11/18 at 21:00 Donepezil HCl (Aricept) 10 mg QHS PO Last administered on 07/20/18 20:32; Start 07/11/18 at 21:00 Furosemide (Lasix) 40 mg DAILY PO Last administered on 07/20/18 08:24; Start 07/12/18 at 09:00 Polyethylene Glycol (miraLAX) 17 gm PRN DAILY PRN PO CONSTIPATION; Start at 15:45 Pregabalin (Lyrica) 100 mg BID PO Last administered on 07/20/18 20:32; Start 07/11/18 at 21:00 Atorvastatin Calcium (Lipitor) 20 mg DAILY PO Last administered on 07/20/18 08 :24; Start 07/12/18 at 09:00 Clonazepam (KlonoPIN) 0.125 mg PRN QHS PRN PO ANXIETY / AGITATION; Start at 15:45 Metformin HCl (Glucophage) 1,000 mg BIDWMEALS PO Last administered on 16:57; Start 07/11/18 at 17:00 Quetiapine Fumarate (SEROquel) 12.5 mg PRN DAILY PRN PO AGITATION; Start at 16:00 Insulin Human Lispro (HumaLOG) 0-5 UNITS TIDACHC SQ Last administered on 16:55; Start 07/11/18 at 21:00 Dextrose 12.5 gm PRN Q15MIN PRN IV SEE COMMENTS; Start 07/11/18 at 19:30 Divalproex Sodium (Depakote Sprinkles) 250 mg QHS PO Last administered on 20:31; Start 07/12/18 at 21:00 Bupropion HCl (Wellbutrin Xl) 150 mg DAILY PO Last administered on 07/20/18 08 :25; Start 07/16/18 at 09:00 Mirtazapine (Remeron) 7.5 mg QHS PO Last administered on 07/20/18 20:31; Start 07/17/18 at 21:00 Amlodipine Besylate (Norvasc) 10 mg DAILY PO Last administered on 07/18/18 07: 54; Start 07/18/18 at 09:00; Stop 07/18/18 at 18:58; Status DC Insulin Human Lispro (HumaLOG) 5 units TIDAC SQ Last administered on 07/20/18at 16:55; Start 07/18/18 at 07:30 Insulin Glargine (Lantus) 10 units QHS SQ Last administered on 07/20/18at 20:33 ; Start 07/17/18 at 21:00 Metolazone (Zaroxolyn) 2.5 mg 3X/WEEK PO Last administered on 07/19/18at 08:27; Start 07/19/18 at 09:00 Active Scripts Active Reported Seroquel (Quetiapine Fumarate) 25 Mg Tablet 12.5 Mg PO PRN DAILY PRN Glucophage (Metformin Hcl) 500 Mg Tablet 1,000 Mg PO BIDWMEALS Lyrica (Pregabalin) 100 Mg Capsule 1 Cap PO BID Miralax (Polyethylene Glycol 3350) 17 Gm Powd.pack 1 Packet PO DAILY PRN Lisinopril 20 Mg Tablet 1 Tab PO DAILY Lasix (Furosemide) 40 Mg Tablet 1 Tab PO DAILY Aricept (Donepezil Hcl) 10 Mg Tablet 1 Tab PO QHS Colace (Docusate Sodium) 100 Mg Capsule 1 Cap PO BID Klonopin (Clonazepam) 0.5 Mg Tablet 0.25 Tab PO HS PRN Atorvastatin Calcium 20 Mg Tablet 20 Mg PO DAILY Aspirin Ec (Aspirin) 81 Mg Tablet. 1 Tab PO DAILY Norvasc (Amlodipine Besylate) 5 Mg Tablet 1 Tab PO DAILY I have reviewed the current psychotropics carefully including drug interactions. Risk benefit ratio favors no change other than as noted in my dictated progress note. Diagnosis: Problems: (1) Dementia, vascular, with depression (2) Anxiety disorder (3) Major depressive disorder, recurrent episode (4) Impulse control disorder (5) Mild cognitive impairment DARWIN ISAACS MD Jul 20, 2018 23:06
[2018-07-21 06:17] VITALS: BP 135/64
[2018-07-21] MEDS: INSULIN LISPRO 300 UNITS/3 ML INSULN.PEN. SQ SCH ×7 (08:09→19:40)
[2018-07-21] MEDS: FUROSEMIDE 40 MG TABLET PO SCH (08:10)
[2018-07-21] MEDS: ATORVASTATIN CALCIUM 20 MG TABLET PO SCH (08:10)
[2018-07-21] MEDS: ASPIRIN ENTERIC COATED 81 MG TABLET.DR. PO SCH (08:10)
[2018-07-21] MEDS: DOCUSATE SODIUM 100 MG CAPSULE PO SCH ×2 (08:10→19:34)
[2018-07-21] MEDS: metFORMIN 500 MG TABLET PO SCH ×2 (08:10→17:44)
[2018-07-21] MEDS: LISINOPRIL 20 MG TABLET PO SCH (08:11)
[2018-07-21] MEDS: buPROPion XL 150 MG TAB.ER.24H PO SCH (08:11)
[2018-07-21] MEDS: PREGABALIN 50 MG CAPSULE PO SCH ×2 (08:11→19:34)
--- NOTE | 2018-07-21 09:12 | NUR ---
Pt is social and compliant with medication and assessments. Pt is cooperative, calm, compliant. No agitation, aggression, hallucinations or delusions.
[2018-07-21 16:41] VITALS: BP 152/73
[2018-07-21] MEDS: MIRTAZAPINE 7.5 MG TABLET. PO SCH (19:34)
[2018-07-21] MEDS: DONEPEZIL HCL 10 MG TABLET PO SCH (19:34)
[2018-07-21] MEDS: DIVALPROEX 125 MG CAP.SPRINK PO SCH (19:34)
[2018-07-21] MEDS: INSULIN GLARGINE 300 UNITS/3 ML INSULN.PEN. SQ SCH (19:59)
--- NOTE | 2018-07-21 23:27 | PDOC ---
Exam Note: Wesly Note: Please also refer to the separate dictated note~for this date of service dictated separately.~Patient seen individually. Discussed the patient with Nursing staff reviewed the chart.~Reviewed interim history and current functioning. Reviewed vital signs,~Labs/ Radiology~and current medications noted below. Continue current treatment with the changes noted in the dictated addendum note Assessment: Vital Signs: Vital Signs Date Time Temp Pulse Resp B/P (MAP) Pulse Ox O2 Delivery O2 Flow Rate FiO2 07/21/18 16:41 97.7 76 18 152/73 (99) 99 Room Air I&O Intake and Output 07/21/18 07:00 Intake Total 1680 ml Balance 1680 ml Intake Oral 1680 ml # Voids 1 Labs: Laboratory Tests Test 07/21/18 07:38 07/21/18 11:37 07/21/18 16:59 07/21/18 19:30 Glucose (Fingerstick) 119 mg/dL (70-99) H 134 mg/dL (70-99) H 180 mg/dL (70-99) H 224 mg/dL (70-99) H Current Medications: Meds: Current Medications Acetaminophen (Tylenol) 650 mg PRN Q6HRS PRN PO PAIN / TEMP; Start 07/11/18 at 14:45 Multi-Ingredient Ointment (Analgesic [place]) 1 charisse PRN QID PRN TP MUSCLE PAIN; Start 07/11/18 at 14:45 Al Hydroxide/Mg Hydroxide (Mylanta Plus Xs) 15 ml PRN AFTMEALHC PRN PO DYSPEPSIA; Start 07/11/18 at 14:45 Magnesium Hydroxide (Milk Of Magnesia) 2,400 mg PRN QHS PRN PO CONSTIPATION; Start 07/11/18 at 14:45 Lisinopril (Prinivil) 20 mg DAILY PO Last administered on 07/21/18at 08:11; Start 07/12/18 at 09:00 Amlodipine Besylate (Norvasc) 5 mg DAILY PO Last administered on 07/17/18at 07: 46; Start 07/12/18 at 09:00; Stop 07/17/18 at 18:14; Status DC Aspirin (Aspirin Enteric Coated) 81 mg DAILY PO Last administered on 07/21/18at 08:10; Start 07/12/18 at 09:00 Docusate Sodium (Colace) 100 mg BID PO Last administered on 07/21/18 19:34; Start 07/11/18 at 21:00 Donepezil HCl (Aricept) 10 mg QHS PO Last administered on 07/21/18 19:34; Start 07/11/18 at 21:00 Furosemide (Lasix) 40 mg DAILY PO Last administered on 07/21/18 08:10; Start 07/12/18 at 09:00 Polyethylene Glycol (miraLAX) 17 gm PRN DAILY PRN PO CONSTIPATION; Start at 15:45 Pregabalin (Lyrica) 100 mg BID PO Last administered on 07/21/18 19:34; Start 07/11/18 at 21:00 Atorvastatin Calcium (Lipitor) 20 mg DAILY PO Last administered on 07/21/18 08 :10; Start 07/12/18 at 09:00 Clonazepam (KlonoPIN) 0.125 mg PRN QHS PRN PO ANXIETY / AGITATION; Start at 15:45 Metformin HCl (Glucophage) 1,000 mg BIDWMEALS PO Last administered on 17:44; Start 07/11/18 at 17:00 Quetiapine Fumarate (SEROquel) 12.5 mg PRN DAILY PRN PO AGITATION; Start at 16:00 Insulin Human Lispro (HumaLOG) 0-5 UNITS TIDACHC SQ Last administered on 17:43; Start 07/11/18 at 21:00 Dextrose 12.5 gm PRN Q15MIN PRN IV SEE COMMENTS; Start 07/11/18 at 19:30 Divalproex Sodium (Depakote Sprinkles) 250 mg QHS PO Last administered on 19:34; Start 07/12/18 at 21:00 Bupropion HCl (Wellbutrin Xl) 150 mg DAILY PO Last administered on 07/21/18 08 :11; Start 07/16/18 at 09:00 Mirtazapine (Remeron) 7.5 mg QHS PO Last administered on 07/21/18 19:34; Start 07/17/18 at 21:00 Amlodipine Besylate (Norvasc) 10 mg DAILY PO Last administered on 3/21/19at 07: 54; Start 07/18/18 at 09:00; Stop 07/18/18 at 18:58; Status DC Insulin Human Lispro (HumaLOG) 5 units TIDAC SQ Last administered on 07/21/18 17:44; Start 07/18/18 at 07:30 Insulin Glargine (Lantus) 10 units QHS SQ Last administered on 07/21/18 19:59 ; Start 07/17/18 at 21:00 Metolazone (Zaroxolyn) 2.5 mg 3X/WEEK PO Last administered on 07/19/18 08:27; Start 07/19/18 at 09:00 Active Scripts Active Reported Seroquel (Quetiapine Fumarate) 25 Mg Tablet 12.5 Mg PO PRN DAILY PRN Glucophage (Metformin Hcl) 500 Mg Tablet 1,000 Mg PO BIDWMEALS Lyrica (Pregabalin) 100 Mg Capsule 1 Cap PO BID Miralax (Polyethylene Glycol 3350) 17 Gm Powd.pack 1 Packet PO DAILY PRN Lisinopril 20 Mg Tablet 1 Tab PO DAILY Lasix (Furosemide) 40 Mg Tablet 1 Tab PO DAILY Aricept (Donepezil Hcl) 10 Mg Tablet 1 Tab PO QHS Colace (Docusate Sodium) 100 Mg Capsule 1 Cap PO BID Klonopin (Clonazepam) 0.5 Mg Tablet 0.25 Tab PO HS PRN Atorvastatin Calcium 20 Mg Tablet 20 Mg PO DAILY Aspirin Ec (Aspirin) 81 Mg Tablet. 1 Tab PO DAILY Norvasc (Amlodipine Besylate) 5 Mg Tablet 1 Tab PO DAILY I have reviewed the current psychotropics carefully including drug interactions. Risk benefit ratio favors no change other than as noted in my dictated progress note. Diagnosis: Problems: (1) Dementia, vascular, with depression (2) Anxiety disorder (3) Major depressive disorder, recurrent episode (4) Impulse control disorder (5) Mild cognitive impairment DARWIN ISAACS MD Jul 21, 2018 23:27
--- NOTE | 2018-07-22 00:16 | NUR ---
Pt located in dayroom this evening. Pt pleasant, A/O and interactive. Compliant with whole medications. No behaviors noted.
[2018-07-22 05:26] VITALS: BP 138/66
[2018-07-22] MEDS: INSULIN LISPRO 300 UNITS/3 ML INSULN.PEN. SQ SCH ×7 (07:30→20:18)
[2018-07-22] MEDS: DOCUSATE SODIUM 100 MG CAPSULE PO SCH ×2 (08:20→20:16)
[2018-07-22] MEDS: FUROSEMIDE 40 MG TABLET PO SCH ×2 (08:20→16:35)
[2018-07-22] MEDS: metFORMIN 500 MG TABLET PO SCH ×2 (08:20→16:34)
[2018-07-22] MEDS: ASPIRIN ENTERIC COATED 81 MG TABLET.DR. PO SCH (08:20)
[2018-07-22] MEDS: ATORVASTATIN CALCIUM 20 MG TABLET PO SCH (08:20)
[2018-07-22] MEDS: buPROPion XL 150 MG TAB.ER.24H PO SCH (08:21)
[2018-07-22] MEDS: LISINOPRIL 20 MG TABLET PO SCH (08:21)
[2018-07-22] MEDS: metOLazone 2.5 MG TABLET PO SCH (08:22)
[2018-07-22] MEDS: PREGABALIN 50 MG CAPSULE PO SCH ×2 (08:23→20:16)
--- NOTE | 2018-07-22 09:37 | NUR ---
Received voice message from Eric at [facility] indicating that Michael did not meet criteria for admission as he did not have enough acute medical management needs. Will notify Reena, daughter/POA, and continue planning for upcoming d/c.
--- NOTE | 2018-07-22 10:35 | NUR ---
Pt is social and compliant with medication and assessments. Pt is cooperative, calm, compliant. No agitation, aggression, hallucinations or delusions. He is social with peers.
--- NOTE | 2018-07-22 10:43 | NUR ---
Call placed to Reena, daughter/POA, to inform that Michael does not meet criteria for in patient treatment at [facility] and this worker needs to know additional post acute rehab facilities that she would like referral information sent to. Left detailed message for Reena, awaiting return phone call.
--- NOTE | 2018-07-22 14:15 | NUR ---
Telephone conversation with Reena, daughter/POA. Reena requested that referrals be sent to [facility], [facility] [place] and [facility] for possible post acute rehab to LTC placement. Will reach out and complete referrals related to openings and if the facility is a medicaid provider.
--- NOTE | 2018-07-22 15:47 | NUR ---
Call placed to Miguel, admissions at [facility], who indicates he has male post acute bed availability. Faxed referral for review, awaiting admit decision.
[2018-07-22 17:01] VITALS: BP 162/74
--- NOTE | 2018-07-22 20:00 | NUR ---
Behavior Intervention Response and Plan: BIRP Note: Behavior: Assumed Care of patient, patient located in Day Room at shift change. Patient exhibited the following behavior Interactive, Calm, Cooperative. Brief assessment on rounds of vital signs, medication needs, lab studies, and pain. Treatment plan problems . Intervention: Patient assessed and the following interventions initiated safety checks 15 Minute Checks Cognitive Assessment , Head to toe Assessment , Medications. Response: After interactions and interventions patient responded in the following manner, Drowsy , Calm ,Cooperative. Continue to assess behaviors and condition will continue to monitor throughout the shift as needed. Patient educated on ADL's, and hand hygiene. 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 Continue to assess patient for changes in above assessment. Monitor for medication needs, pain, and safety concerns. Hourly rounding performed to ensure safe environment.
--- NOTE | 2018-07-22 20:11 | PN ---
DATE: 07/21/2018 PSYCHIATRIC PROGRESS NOTE This late entry 07/21/2018 covers elements not covered in my initial note. SUBJECTIVE: I met with the patient in the evening. The patient slept 8 hours previous night. He has complained of some pedal edema, I will defer to Dr. Ozuna. REVIEW OF SYSTEMS: No CV, , pulmonary, eye system symptoms on review. MENTAL STATUS EXAM: The patient is reasonably oriented. Speech is coherent, abstraction fair, computation impaired, language function intact. Mood and affect improved. LABORATORY DATA: Reviewed. IMPRESSION: Unchanged from initial note. PLAN: No change from initial note. MAN Dyna ISAACS MD DR: GLORIA/vlad JOB#: [id number] / [id number]
[2018-07-22] MEDS: DIVALPROEX 125 MG CAP.SPRINK PO SCH (20:16)
[2018-07-22] MEDS: MIRTAZAPINE 7.5 MG TABLET. PO SCH (20:17)
[2018-07-22] MEDS: DONEPEZIL HCL 10 MG TABLET PO SCH (20:17)
[2018-07-22] MEDS: INSULIN GLARGINE 300 UNITS/3 ML INSULN.PEN. SQ SCH (20:21)
[2018-07-22] MEDS ORDERED: FUROSEMIDE 40 MG TABLET PO SCH (21:00)
--- NOTE | 2018-07-22 22:41 | PDOC ---
Exam Note: Wesly Note: Please also refer to the separate dictated note~for this date of service dictated separately.~Patient seen individually. Discussed the patient with Nursing staff reviewed the chart.~Reviewed interim history and current functioning. Reviewed vital signs,~Labs/ Radiology~and current medications noted below. Continue current treatment with the changes noted in the dictated addendum note Assessment: Vital Signs: Vital Signs Date Time Temp Pulse Resp B/P (MAP) Pulse Ox O2 Delivery O2 Flow Rate FiO2 07/22/18 17:01 97.2 83 20 162/74 (103) 97 07/21/18 16:41 Room Air I&O Intake and Output 07/22/18 07:00 Intake Total 1680 ml Balance 1680 ml Intake Oral 1680 ml Labs: Laboratory Tests Test 07/22/18 07:28 07/22/18 11:23 07/22/18 17:07 07/22/18 19:17 Glucose (Fingerstick) 107 mg/dL (70-99) H 117 mg/dL (70-99) H 140 mg/dL (70-99) H 188 mg/dL (70-99) H Current Medications: Meds: Current Medications Acetaminophen (Tylenol) 650 mg PRN Q6HRS PRN PO PAIN / TEMP; Start 07/11/18 at 14:45 Multi-Ingredient Ointment (Analgesic Goodell) 1 charisse PRN QID PRN TP MUSCLE PAIN; Start 07/11/18 at 14:45 Al Hydroxide/Mg Hydroxide (Mylanta Plus Xs) 15 ml PRN AFTMEALHC PRN PO DYSPEPSIA; Start 07/11/18 at 14:45 Magnesium Hydroxide (Milk Of Magnesia) 2,400 mg PRN QHS PRN PO CONSTIPATION; Start 07/11/18 at 14:45 Lisinopril (Prinivil) 20 mg DAILY PO Last administered on 07/22/18at 08:21; Start 07/12/18 at 09:00 Amlodipine Besylate (Norvasc) 5 mg DAILY PO Last administered on 07/17/18at 07: 46; Start 07/12/18 at 09:00; Stop 07/17/18 at 18:14; Status DC Aspirin (Aspirin Enteric Coated) 81 mg DAILY PO Last administered on 07/22/18at 08:20; Start 07/12/18 at 09:00 Docusate Sodium (Colace) 100 mg BID PO Last administered on 07/22/18 20:16; Start 07/11/18 at 21:00 Donepezil HCl (Aricept) 10 mg QHS PO Last administered on 07/22/18 20:17; Start 07/11/18 at 21:00 Furosemide (Lasix) 40 mg DAILY PO Last administered on 07/22/18 08:20; Start 07/12/18 at 09:00; Stop 07/22/18 at 13:51; Status DC Polyethylene Glycol (miraLAX) 17 gm PRN DAILY PRN PO CONSTIPATION; Start at 15:45 Pregabalin (Lyrica) 100 mg BID PO Last administered on 07/22/18 20:16; Start 07/11/18 at 21:00 Atorvastatin Calcium (Lipitor) 20 mg DAILY PO Last administered on 07/22/18 08 :20; Start 07/12/18 at 09:00 Clonazepam (KlonoPIN) 0.125 mg PRN QHS PRN PO ANXIETY / AGITATION; Start at 15:45 Metformin HCl (Glucophage) 1,000 mg BIDWMEALS PO Last administered on 16:34; Start 07/11/18 at 17:00 Quetiapine Fumarate (SEROquel) 12.5 mg PRN DAILY PRN PO AGITATION; Start at 16:00 Insulin Human Lispro (HumaLOG) 0-5 UNITS TIDACHC SQ Last administered on 17:43; Start 07/11/18 at 21:00 Dextrose 12.5 gm PRN Q15MIN PRN IV SEE COMMENTS; Start 07/11/18 at 19:30 Divalproex Sodium (Depakote Sprinkles) 250 mg QHS PO Last administered on 20:16; Start 07/12/18 at 21:00 Bupropion HCl (Wellbutrin Xl) 150 mg DAILY PO Last administered on 07/22/18 08 :21; Start 07/16/18 at 09:00 Mirtazapine (Remeron) 7.5 mg QHS PO Last administered on 07/22/18 20:17; Start 07/17/18 at 21:00 Amlodipine Besylate (Norvasc) 10 mg DAILY PO Last administered on 07/18/18at 07: 54; Start 07/18/18 at 09:00; Stop 07/18/18 at 18:58; Status DC Insulin Human Lispro (HumaLOG) 5 units TIDAC SQ Last administered on 07/22/18at 17:17; Start 07/18/18 at 07:30 Insulin Glargine (Lantus) 10 units QHS SQ Last administered on 07/22/18at 20:21 ; Start 07/17/18 at 21:00 Metolazone (Zaroxolyn) 2.5 mg 3X/WEEK PO Last administered on 07/22/18at 08:22; Start 07/19/18 at 09:00 Furosemide (Lasix) 40 mg BID PO ; Start 07/22/18 at 21:00; Stop 07/22/18 at 21: 00; Status DC Furosemide (Lasix) 40 mg BIDWMEALS PO Last administered on 07/22/18at 16:35; Start 07/22/18 at 17:00 Active Scripts Active Reported Seroquel (Quetiapine Fumarate) 25 Mg Tablet 12.5 Mg PO PRN DAILY PRN Glucophage (Metformin Hcl) 500 Mg Tablet 1,000 Mg PO BIDWMEALS Lyrica (Pregabalin) 100 Mg Capsule 1 Cap PO BID Miralax (Polyethylene Glycol 3350) 17 Gm Powd.pack 1 Packet PO DAILY PRN Lisinopril 20 Mg Tablet 1 Tab PO DAILY Lasix (Furosemide) 40 Mg Tablet 1 Tab PO DAILY Aricept (Donepezil Hcl) 10 Mg Tablet 1 Tab PO QHS Colace (Docusate Sodium) 100 Mg Capsule 1 Cap PO BID Klonopin (Clonazepam) 0.5 Mg Tablet 0.25 Tab PO HS PRN Atorvastatin Calcium 20 Mg Tablet 20 Mg PO DAILY Aspirin Ec (Aspirin) 81 Mg Tablet. 1 Tab PO DAILY Norvasc (Amlodipine Besylate) 5 Mg Tablet 1 Tab PO DAILY I have reviewed the current psychotropics carefully including drug interactions. Risk benefit ratio favors no change other than as noted in my dictated progress note. Diagnosis: Problems: (1) Dementia, vascular, with depression (2) Anxiety disorder (3) Major depressive disorder, recurrent episode (4) Impulse control disorder (5) Mild cognitive impairment DARWIN ISAACS MD Jul 22, 2018 22:41
[2018-07-23 06:05] VITALS: BP 148/77
[2018-07-23] MEDS: INSULIN LISPRO 300 UNITS/3 ML INSULN.PEN. SQ SCH ×7 (07:30→20:08)
[2018-07-23 07:33] LABS: CALCIUM 8.9 mg/dL (8.5-10.1); CREATININE 1.6 mg/dL (0.7-1.3); GFR 43.3
[2018-07-23] MEDS: FUROSEMIDE 40 MG TABLET PO SCH ×2 (08:13→16:21)
[2018-07-23] MEDS: metFORMIN 500 MG TABLET PO SCH ×2 (08:13→16:21)
[2018-07-23] MEDS: ATORVASTATIN CALCIUM 20 MG TABLET PO SCH (08:13)
[2018-07-23] MEDS: PREGABALIN 50 MG CAPSULE PO SCH ×2 (08:13→20:02)
[2018-07-23] MEDS: ASPIRIN ENTERIC COATED 81 MG TABLET.DR. PO SCH (08:13)
[2018-07-23] MEDS: DOCUSATE SODIUM 100 MG CAPSULE PO SCH ×2 (08:13→20:03)
[2018-07-23] MEDS: buPROPion XL 150 MG TAB.ER.24H PO SCH (08:14)
[2018-07-23] MEDS: LISINOPRIL 20 MG TABLET PO SCH (08:14)
--- NOTE | 2018-07-23 09:38 | NUR ---
Call placed to Mey, disaster response director at [facility], to inquire about bed availability. Left detailed message with request for return phone call. Faxed referral for review. Call placed to Shalonda, director of skilled admissions at [facility], to inquire about bed availability and if [facility] is a medicaid provider. Left detailed message with request for return phone call. Call placed to Shiv, disaster response director at [place], who indicated that they had no medicaid bed availability at this time. Call placed to [place] [facility], no answer. Will attempt to reach at later time.
--- NOTE | 2018-07-23 10:21 | NUR ---
Pt is social and compliant with medication and assessments. Pt is cooperative, calm, compliant. No agitation, aggression, hallucinations or delusions. He is social and participates in group.
--- NOTE | 2018-07-23 15:05 | NUR ---
Received voice mail from Sharon at [facility] indicating that [facility] was declined for admission.
[2018-07-23 16:16] VITALS: BP 123/74
--- NOTE | 2018-07-23 17:40 | NUR ---
Pt is continuously requesting more food after every meal and snack time even after additional is given. Pt becomes irritable when redirected and diet, medication, and lab values particularly his creatinine is explained. Nurse informed pt that a dietary consult would be put in and he again may speak with the beam dyer recessed vat regarding his diet and adding additional intake.
--- NOTE | 2018-07-23 20:00 | NUR ---
Behavior Intervention Response and Plan: BIRP Note: Behavior: Assumed Care of patient, patient located in Day Room at shift change. Patient exhibited the following behavior Calm, Cooperative, Social. Brief assessment on rounds of vital signs, medication needs, lab studies, and pain. Treatment plan problems . Intervention: Patient assessed and the following interventions initiated safety checks 15 Minute Checks Medications , Head to toe Assessment , Cognitive Assessment. Response: After interactions and interventions patient responded in the following manner, Drowsy , Calm ,Appropriate. Continue to assess behaviors and condition will continue to monitor throughout the shift as needed. Patient educated on ADL's, and hand hygiene. Plan: Continue to monitor Master Treatment Plan for patient's progress toward short term goals of No harm To self/ others, Medication Compliance, custodial goals to return to previous living setting vs placement. Continue to assess patient for changes in above assessment. Monitor for medication needs, pain, and safety concerns. Hourly rounding performed to ensure safe environment.
[2018-07-23] MEDS: MIRTAZAPINE 7.5 MG TABLET. PO SCH (20:02)
[2018-07-23] MEDS: DIVALPROEX 125 MG CAP.SPRINK PO SCH (20:02)
[2018-07-23] MEDS: DONEPEZIL HCL 10 MG TABLET PO SCH (20:03)
[2018-07-23] MEDS: INSULIN GLARGINE 300 UNITS/3 ML INSULN.PEN. SQ SCH (20:07)
--- NOTE | 2018-07-23 21:59 | PN ---
DATE: 07/22/2018 PSYCHIATRIC PROGRESS NOTE This late entry 07/22/2018 covers elements not covered in my initial note. SUBJECTIVE: I met with the patient in the evening. The patient slept 5-3/4 hours previous night. He is concerned about his pedal edema. Dr. Ozuna is addressing this with Lasix adjusted. Otherwise, he has been appropriate psychiatrically. REVIEW OF SYSTEMS: No CV, , pulmonary, eye system symptoms on review. MENTAL STATUS EXAM: Reasonably oriented. Speech is coherent, abstraction fair, computation impaired, language function intact, attention span short. Mood and affect is improved, less anxious, depressed. LABORATORY DATA: Reviewed. IMPRESSION: Unchanged from initial note. PLAN: No change from initial note. MAN Dyan ISAACS MD DR: GLORIA/nts JOB#: [id number] / [id number]
--- NOTE | 2018-07-23 22:57 | PDOC ---
Exam Note: Wesly Note: Please also refer to the separate dictated note~for this date of service dictated separately.~Patient seen individually. Discussed the patient with Nursing staff reviewed the chart.~Reviewed interim history and current functioning. Reviewed vital signs,~Labs/ Radiology~and current medications noted below. Continue current treatment with the changes noted in the dictated addendum note Assessment: Vital Signs: Vital Signs Date Time Temp Pulse Resp B/P (MAP) Pulse Ox O2 Delivery O2 Flow Rate FiO2 07/23/18 16:16 98.2 72 18 123/74 (90) 100 Room Air I&O Intake and Output 07/23/18 07:00 Intake Total 2040 ml Balance 2040 ml Intake Oral 2040 ml Labs: Laboratory Tests Test 07/23/18 07:13 07/23/18 07:43 07/23/18 12:01 07/23/18 17:01 Sodium Level 143 mmol/L (136-145) Potassium Level 4.0 mmol/L (3.5-5.1) Chloride Level 105 mmol/L (98-107) Carbon Dioxide Level 36 mmol/L (21-32) H Anion Gap 2 (6-14) L Blood Urea Nitrogen 34 mg/dL (8-26) H Creatinine 1.6 mg/dL (0.7-1.3) H Estimated GFR (Cockcroft-Gault) 43.3 Glucose Level 107 mg/dL (70-99) H Calcium Level 8.9 mg/dL (8.5-10.1) Glucose (Fingerstick) 104 mg/dL (70-99) H 137 mg/dL (70-99) H 171 mg/dL (70-99) H Test 07/23/18 19:10 Glucose (Fingerstick) 161 mg/dL (70-99) H Current Medications: Meds: Current Medications Acetaminophen (Tylenol) 650 mg PRN Q6HRS PRN PO PAIN / TEMP; Start 07/11/18 at 14:45 Multi-Ingredient Ointment (Analgesic Handley) 1 charisse PRN QID PRN TP MUSCLE PAIN; Start 07/11/18 at 14:45 Al Hydroxide/Mg Hydroxide (Mylanta Plus Xs) 15 ml PRN AFTMEALHC PRN PO DYSPEPSIA; Start 07/11/18 at 14:45 Magnesium Hydroxide (Milk Of Magnesia) 2,400 mg PRN QHS PRN PO CONSTIPATION; Start 07/11/18 at 14:45 Lisinopril (Prinivil) 20 mg DAILY PO Last administered on 07/23/18 08:14; Start 07/12/18 at 09:00 Amlodipine Besylate (Norvasc) 5 mg DAILY PO Last administered on 07/17/18 07: 46; Start 07/12/18 at 09:00; Stop 07/17/18 at 18:14; Status DC Aspirin (Aspirin Enteric Coated) 81 mg DAILY PO Last administered on 07/23/18 08:13; Start 07/12/18 at 09:00 Docusate Sodium (Colace) 100 mg BID PO Last administered on 07/23/18 20:03; Start 07/11/18 at 21:00 Donepezil HCl (Aricept) 10 mg QHS PO Last administered on 07/23/18 20:03; Start 07/11/18 at 21:00 Furosemide (Lasix) 40 mg DAILY PO Last administered on 07/22/18 08:20; Start 07/12/18 at 09:00; Stop 07/22/18 at 13:51; Status DC Polyethylene Glycol (miraLAX) 17 gm PRN DAILY PRN PO CONSTIPATION; Start at 15:45 Pregabalin (Lyrica) 100 mg BID PO Last administered on 07/23/18 20:02; Start 07/11/18 at 21:00 Atorvastatin Calcium (Lipitor) 20 mg DAILY PO Last administered on 07/23/18 08 :13; Start 07/12/18 at 09:00 Clonazepam (KlonoPIN) 0.125 mg PRN QHS PRN PO ANXIETY / AGITATION; Start at 15:45 Metformin HCl (Glucophage) 1,000 mg BIDWMEALS PO Last administered on 16:21; Start 07/11/18 at 17:00 Quetiapine Fumarate (SEROquel) 12.5 mg PRN DAILY PRN PO AGITATION; Start at 16:00 Insulin Human Lispro (HumaLOG) 0-5 UNITS TIDACHC SQ Last administered on 17:18; Start 07/11/18 at 21:00 Dextrose 12.5 gm PRN Q15MIN PRN IV SEE COMMENTS; Start 07/11/18 at 19:30 Divalproex Sodium (Depakote Sprinkles) 250 mg QHS PO Last administered on at 20:02; Start 07/12/18 at 21:00 Bupropion HCl (Wellbutrin Xl) 150 mg DAILY PO Last administered on 07/23/18at 08 :14; Start 07/16/18 at 09:00 Mirtazapine (Remeron) 7.5 mg QHS PO Last administered on 07/23/18at 20:02; Start 07/17/18 at 21:00 Amlodipine Besylate (Norvasc) 10 mg DAILY PO Last administered on 07/18/18at 07: 54; Start 07/18/18 at 09:00; Stop 07/18/18 at 18:58; Status DC Insulin Human Lispro (HumaLOG) 5 units TIDAC SQ Last administered on 07/23/18at 17:19; Start 07/18/18 at 07:30 Insulin Glargine (Lantus) 10 units QHS SQ Last administered on 07/23/18at 20:07 ; Start 07/17/18 at 21:00 Metolazone (Zaroxolyn) 2.5 mg 3X/WEEK PO Last administered on 07/22/18at 08:22; Start 07/19/18 at 09:00 Furosemide (Lasix) 40 mg BID PO ; Start 07/22/18 at 21:00; Stop 07/22/18 at 21: 00; Status DC Furosemide (Lasix) 40 mg BIDWMEALS PO Last administered on 07/23/18at 16:21; Start 07/22/18 at 17:00 Active Scripts Active Reported Seroquel (Quetiapine Fumarate) 25 Mg Tablet 12.5 Mg PO PRN DAILY PRN Glucophage (Metformin Hcl) 500 Mg Tablet 1,000 Mg PO BIDWMEALS Lyrica (Pregabalin) 100 Mg Capsule 1 Cap PO BID Miralax (Polyethylene Glycol 3350) 17 Gm Powd.pack 1 Packet PO DAILY PRN Lisinopril 20 Mg Tablet 1 Tab PO DAILY Lasix (Furosemide) 40 Mg Tablet 1 Tab PO DAILY Aricept (Donepezil Hcl) 10 Mg Tablet 1 Tab PO QHS Colace (Docusate Sodium) 100 Mg Capsule 1 Cap PO BID Klonopin (Clonazepam) 0.5 Mg Tablet 0.25 Tab PO HS PRN Atorvastatin Calcium 20 Mg Tablet 20 Mg PO DAILY Aspirin Ec (Aspirin) 81 Mg Tablet. 1 Tab PO DAILY Norvasc (Amlodipine Besylate) 5 Mg Tablet 1 Tab PO DAILY I have reviewed the current psychotropics carefully including drug interactions. Risk benefit ratio favors no change other than as noted in my dictated progress note. Diagnosis: Problems: (1) Dementia, vascular, with depression (2) Anxiety disorder (3) Major depressive disorder, recurrent episode (4) Impulse control disorder (5) Mild cognitive impairment DARWIN ISAACS MD Jul 23, 2018 22:56
[2018-07-24 06:03] VITALS: BP 139/63
[2018-07-24] MEDS: INSULIN LISPRO 300 UNITS/3 ML INSULN.PEN. SQ SCH ×7 (07:30→20:13)
[2018-07-24] MEDS: ASPIRIN ENTERIC COATED 81 MG TABLET.DR. PO SCH (07:45)
[2018-07-24] MEDS: FUROSEMIDE 40 MG TABLET PO SCH ×2 (07:45→16:12)
[2018-07-24] MEDS: metFORMIN 500 MG TABLET PO SCH ×2 (07:45→16:12)
[2018-07-24] MEDS: ATORVASTATIN CALCIUM 20 MG TABLET PO SCH (07:45)
[2018-07-24] MEDS: DOCUSATE SODIUM 100 MG CAPSULE PO SCH ×2 (07:46→20:10)
[2018-07-24] MEDS: buPROPion XL 150 MG TAB.ER.24H PO SCH (07:46)
[2018-07-24] MEDS: LISINOPRIL 20 MG TABLET PO SCH (07:48)
[2018-07-24] MEDS: metOLazone 2.5 MG TABLET PO SCH (07:51)
[2018-07-24] MEDS: PREGABALIN 50 MG CAPSULE PO SCH ×2 (07:52→20:09)
--- NOTE | 2018-07-24 09:50 | NUR ---
Call two placed to [facility] to inquire about bed availability, left detailed message with request for return phone call. Call placed to Reena, daughter/POA, to update on search for post acute skilled facilities. Requested Reena call and speak to Miguel, director global intelligence at [facility], in relation to [facility] finances. Reena indicated she would contact Miguel today and get back with this SW after she converses with Miguel.
--- NOTE | 2018-07-24 14:44 | NUR ---
Pt has been calm, cooperative, and compliant. Pt has been sitting in day room talking to other patients or staff. Pt's daughter visited at lunch. Pt's daughter also called and spoke with this nurse for approximately 10 minutes; concerns and questions were voiced to be addressed during treatment team tomorrow. These are the same concerns/questions she had last week and she never got answers. This nurse typed up the list of questions with copies of CT results to be compared and explained to her at treatment team tomorrow and placed in Dr. Franklin's file to be reviewed during rounds today.
[2018-07-24 16:00] VITALS: BP 142/84
--- NOTE | 2018-07-24 20:00 | NUR ---
Behavior Intervention Response and Plan: BIRP Note: Behavior: Assumed Care of patient, patient located in Day Room at shift change. Patient exhibited the following behavior Calm, Interactive, Cooperative. Brief assessment on rounds of vital signs, medication needs, lab studies, and pain. Treatment plan problems . Intervention: Patient assessed and the following interventions initiated safety checks 15 Minute Checks Cognitive Assessment , Head to toe Assessment , Medications. Response: After interactions and interventions patient responded in the following manner, Drowsy , Cooperative ,Calm. Continue to assess behaviors and condition will continue to monitor throughout the shift as needed. Patient educated on ADL's, and hand hygiene. Plan: Continue to monitor Master Treatment Plan for patient's progress toward short term goals of Improved Mood, Medication Compliance, terminal manager goals to return to previous living setting vs placement. Continue to assess patient for changes in above assessment. Monitor for medication needs, pain, and safety concerns. Hourly rounding performed to ensure safe environment.
[2018-07-24] MEDS: DONEPEZIL HCL 10 MG TABLET PO SCH (20:09)
[2018-07-24] MEDS: DIVALPROEX 125 MG CAP.SPRINK PO SCH (20:10)
[2018-07-24] MEDS: MIRTAZAPINE 7.5 MG TABLET. PO SCH (20:12)
[2018-07-24] MEDS: INSULIN GLARGINE 300 UNITS/3 ML INSULN.PEN. SQ SCH (20:13)
--- NOTE | 2018-07-24 20:40 | PN ---
DATE: 07/23/2018 PSYCHIATRIC PROGRESS NOTE This late entry, 07/23/2018, covers elements not covered in my initial note. SUBJECTIVE: I met with the patient in the evening. The patient slept 6-1/4 hours previous night. He has been pleasant and cooperative, less anxious. REVIEW OF SYSTEMS: No CV, , pulmonary, eye system symptoms on review. MENTAL STATUS EXAM: The patient is reasonably oriented to situation. Does have some short-term memory deficits. Abstraction fair, computation impaired, language function intact. Mood and affect improved. LABORATORY DATA: Reviewed. IMPRESSION: Unchanged from initial note. PLAN: No change from initial note. MAN Dyan ISAACS MD DR: GLORIA/vlad JOB#: [id number] / [id number]
--- NOTE | 2018-07-24 22:59 | PDOC ---
Exam Note: Wesly Note: Please also refer to the separate dictated note~for this date of service dictated separately.~Patient seen individually. Discussed the patient with Nursing staff reviewed the chart.~Reviewed interim history and current functioning. Reviewed vital signs,~Labs/ Radiology~and current medications noted below. Continue current treatment with the changes noted in the dictated addendum note Assessment: Vital Signs: Vital Signs Date Time Temp Pulse Resp B/P (MAP) Pulse Ox O2 Delivery O2 Flow Rate FiO2 07/24/18 16:00 97.8 74 20 142/84 (103) 100 07/23/18 16:16 Room Air I&O Intake and Output 07/24/18 06:59 Intake Total 1920 ml Balance 1920 ml Intake Oral 1920 ml Labs: Laboratory Tests Test 07/24/18 07:13 07/24/18 11:40 07/24/18 16:40 07/24/18 19:34 Glucose (Fingerstick) 94 mg/dL (70-99) 112 mg/dL (70-99) H 152 mg/dL (70-99) H 114 mg/dL (70-99) H Current Medications: Meds: Current Medications Acetaminophen (Tylenol) 650 mg PRN Q6HRS PRN PO PAIN / TEMP; Start 07/11/18 at 14:45 Multi-Ingredient Ointment (Analgesic Savannah) 1 charisse PRN QID PRN TP MUSCLE PAIN; Start 07/11/18 at 14:45 Al Hydroxide/Mg Hydroxide (Mylanta Plus Xs) 15 ml PRN AFTMEALHC PRN PO DYSPEPSIA; Start 07/11/18 at 14:45 Magnesium Hydroxide (Milk Of Magnesia) 2,400 mg PRN QHS PRN PO CONSTIPATION; Start 07/11/18 at 14:45 Lisinopril (Prinivil) 20 mg DAILY PO Last administered on 07/24/18at 07:48; Start 07/12/18 at 09:00 Amlodipine Besylate (Norvasc) 5 mg DAILY PO Last administered on 07/17/18at 07: 46; Start 07/12/18 at 09:00; Stop 07/17/18 at 18:14; Status DC Aspirin (Aspirin Enteric Coated) 81 mg DAILY PO Last administered on 07/24/18at 07:45; Start 07/12/18 at 09:00 Docusate Sodium (Colace) 100 mg BID PO Last administered on 07/24/18 20:10; Start 07/11/18 at 21:00 Donepezil HCl (Aricept) 10 mg QHS PO Last administered on 07/24/18 20:09; Start 07/11/18 at 21:00 Furosemide (Lasix) 40 mg DAILY PO Last administered on 07/22/18 08:20; Start 07/12/18 at 09:00; Stop 07/22/18 at 13:51; Status DC Polyethylene Glycol (miraLAX) 17 gm PRN DAILY PRN PO CONSTIPATION; Start at 15:45 Pregabalin (Lyrica) 100 mg BID PO Last administered on 07/24/18 20:09; Start 07/11/18 at 21:00 Atorvastatin Calcium (Lipitor) 20 mg DAILY PO Last administered on 07/24/18 07 :45; Start 07/12/18 at 09:00 Clonazepam (KlonoPIN) 0.125 mg PRN QHS PRN PO ANXIETY / AGITATION; Start at 15:45 Metformin HCl (Glucophage) 1,000 mg BIDWMEALS PO Last administered on 16:12; Start 07/11/18 at 17:00 Quetiapine Fumarate (SEROquel) 12.5 mg PRN DAILY PRN PO AGITATION; Start at 16:00 Insulin Human Lispro (HumaLOG) 0-5 UNITS TIDACHC SQ Last administered on 18:12; Start 07/11/18 at 21:00 Dextrose 12.5 gm PRN Q15MIN PRN IV SEE COMMENTS; Start 07/11/18 at 19:30 Divalproex Sodium (Depakote Sprinkles) 250 mg QHS PO Last administered on 20:10; Start 07/12/18 at 21:00 Bupropion HCl (Wellbutrin Xl) 150 mg DAILY PO Last administered on 07/24/18 07 :46; Start 07/16/18 at 09:00 Mirtazapine (Remeron) 7.5 mg QHS PO Last administered on 07/24/18 20:12; Start 07/17/18 at 21:00 Amlodipine Besylate (Norvasc) 10 mg DAILY PO Last administered on 07/18/18at 07: 54; Start 07/18/18 at 09:00; Stop 07/18/18 at 18:58; Status DC Insulin Human Lispro (HumaLOG) 5 units TIDAC SQ Last administered on 07/24/18at 18:11; Start 07/18/18 at 07:30 Insulin Glargine (Lantus) 10 units QHS SQ Last administered on 07/24/18at 20:13 ; Start 07/17/18 at 21:00 Metolazone (Zaroxolyn) 2.5 mg 3X/WEEK PO Last administered on 07/24/18at 07:51; Start 07/19/18 at 09:00 Furosemide (Lasix) 40 mg BID PO ; Start 07/22/18 at 21:00; Stop 07/22/18 at 21: 00; Status DC Furosemide (Lasix) 40 mg BIDWMEALS PO Last administered on 07/24/18at 16:12; Start 07/22/18 at 17:00 Active Scripts Active Reported Seroquel (Quetiapine Fumarate) 25 Mg Tablet 12.5 Mg PO PRN DAILY PRN Glucophage (Metformin Hcl) 500 Mg Tablet 1,000 Mg PO BIDWMEALS Lyrica (Pregabalin) 100 Mg Capsule 1 Cap PO BID Miralax (Polyethylene Glycol 3350) 17 Gm Powd.pack 1 Packet PO DAILY PRN Lisinopril 20 Mg Tablet 1 Tab PO DAILY Lasix (Furosemide) 40 Mg Tablet 1 Tab PO DAILY Aricept (Donepezil Hcl) 10 Mg Tablet 1 Tab PO QHS Colace (Docusate Sodium) 100 Mg Capsule 1 Cap PO BID Klonopin (Clonazepam) 0.5 Mg Tablet 0.25 Tab PO HS PRN Atorvastatin Calcium 20 Mg Tablet 20 Mg PO DAILY Aspirin Ec (Aspirin) 81 Mg Tablet. 1 Tab PO DAILY Norvasc (Amlodipine Besylate) 5 Mg Tablet 1 Tab PO DAILY I have reviewed the current psychotropics carefully including drug interactions. Risk benefit ratio favors no change other than as noted in my dictated progress note. Diagnosis: Problems: (1) Dementia, vascular, with depression (2) Anxiety disorder (3) Major depressive disorder, recurrent episode (4) Impulse control disorder (5) Mild cognitive impairment DARWIN ISAACS MD Jul 24, 2018 22:59
[2018-07-25 06:26] VITALS: BP 130/65
[2018-07-25] MEDS: INSULIN LISPRO 300 UNITS/3 ML INSULN.PEN. SQ SCH ×7 (07:30→19:50)
[2018-07-25] MEDS: PREGABALIN 50 MG CAPSULE PO SCH ×2 (07:36→19:51)
[2018-07-25] MEDS: buPROPion XL 150 MG TAB.ER.24H PO SCH (07:36)
[2018-07-25] MEDS: metFORMIN 500 MG TABLET PO SCH ×2 (07:36→16:29)
[2018-07-25] MEDS: DOCUSATE SODIUM 100 MG CAPSULE PO SCH ×2 (07:36→19:49)
[2018-07-25] MEDS: FUROSEMIDE 40 MG TABLET PO SCH ×2 (07:36→16:29)
[2018-07-25] MEDS: ASPIRIN ENTERIC COATED 81 MG TABLET.DR. PO SCH (07:36)
[2018-07-25] MEDS: ATORVASTATIN CALCIUM 20 MG TABLET PO SCH (07:37)
[2018-07-25] MEDS: LISINOPRIL 20 MG TABLET PO SCH (07:37)
--- NOTE | 2018-07-25 09:13 | NUR ---
WEEKLY NOTE: Pt chloer Reena participated in tx team via telephone. Pt is eating 100% and sleeping 6 hours of sleep. Pt is very interactive and social; attending multiple groups and working with therapy. The neurologist has been consulted and it appears that pt may have Vascular Dementia instead of Lewey Body Dementia. At this time, pt will plan to discharge to for continued rehabilitation services within the next week. SW will continue to follow up with pt and pt family on final discharge plans.
--- NOTE | 2018-07-25 09:38 | NUR ---
WEEKLY ACTIVITY THERAPY NOTE Date of Admission: 07/11/2018 Date of AT Assessment: 07/14/2018 Goal aimed: to increase socialization and engagement Initial goal: Pt. will participate in all Activity Therapy groups he is invited to. Weekly progress towards goal: achieved Group participation level: full Behaviors observed: enjoys ACT groups, enjoys music, sugar free candy, takes breaks during exercises groups, little lapses in short term memory needing reminders Plan: no change to goal
--- NOTE | 2018-07-25 12:06 | NUR ---
This worker has received no admit decision from Miguel at [facility]. Left message for Miguel with request for return phone call. Call placed to [facility], left message for associate creative director Lillie, with intent to acquire about bed availability. Awaiting return phone call. Call placed to [facility], left message for associate creative director Mary Ellen, with intent to inquire about bed availability. Awaiting return phone call. Call placed to [facility] for rehab and nursing, left message for associate creative director Rosalina, with intent to inquire about bed availability. Awaiting return phone call.
--- NOTE | 2018-07-25 14:41 | NUR ---
Michael has been accepted for transfer to [facility] on 07/26/18. Call placed to larisa Valles/ENE, to inform and inquire about what time family intends to transport. Awaiting return phone call.
--- NOTE | 2018-07-25 14:44 | NUR ---
[facility] Social Work Discharge Planning Form Patient Name JENNIFER PEÑA Admit Date: 07/11/2018 DISCHARGE PLAN Discharge Destination: [facility] Care Assessment: Completed and faxed to Miguel at [facility] on 07/25/18 Transportation: Family to transport on 07/26/18, will call with transport time. Special Instructions/Notes: Arrange for f/u appointments with [facility] physician and house psychiatrist in 7-10 days. DISCHARGE TO FACILITY Facility: [facility] Address: [address] [place] [address] Contact Name: marlon Rivera PCP: Dr. Cantu [phone], (fax) Psychiatrist: Dr. Oden [phone]
--- NOTE | 2018-07-25 15:10 | NUR ---
Reviewed discharge arrangements with Michael. 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 Encouraged Michael to sit down with his family and have a discussion about this once he gets settled at [facility]. Michael thanked this worker for the update.
[2018-07-25 16:14] VITALS: BP 122/71
--- NOTE | 2018-07-25 19:22 | NUR ---
Pt has been calm and pleasant this shift. Pt is social and interactive with staff. Pt has discomfort in bilateral lower legs d/t 3+ edema.
[2018-07-25] MEDS: DIVALPROEX 125 MG CAP.SPRINK PO SCH (19:49)
[2018-07-25] MEDS: MIRTAZAPINE 7.5 MG TABLET. PO SCH (19:49)
[2018-07-25] MEDS: DONEPEZIL HCL 10 MG TABLET PO SCH (19:49)
[2018-07-25] MEDS: INSULIN GLARGINE 300 UNITS/3 ML INSULN.PEN. SQ SCH (19:55)
--- NOTE | 2018-07-25 22:25 | NUR ---
Pt sitting in day room at shift change, interacting with peers. Pt calm, pleasant, and social. Pt cooperative with assessment and compliant with cares.
--- NOTE | 2018-07-25 22:36 | PDOC ---
Exam Note: Wesly Note: Please also refer to the separate dictated note~for this date of service dictated separately.~Patient seen individually. Discussed the patient with Nursing staff reviewed the chart.~Reviewed interim history and current functioning. Reviewed vital signs,~Labs/ Radiology~and current medications noted below. Continue current treatment with the changes noted in the dictated addendum note Assessment: Vital Signs: Vital Signs Date Time Temp Pulse Resp B/P (MAP) Pulse Ox O2 Delivery O2 Flow Rate FiO2 07/25/18 16:14 97.2 81 20 122/71 (88) 98 Room Air I&O Intake and Output 07/25/18 06:59 Intake Total 2460 ml Balance 2460 ml Intake Oral 2460 ml # Voids 1 Labs: Laboratory Tests Test 07/25/18 07:35 07/25/18 12:22 07/25/18 16:42 07/25/18 19:15 Glucose (Fingerstick) 118 mg/dL (70-99) H 163 mg/dL (70-99) H 129 mg/dL (70-99) H 155 mg/dL (70-99) H Current Medications: Meds: Current Medications Acetaminophen (Tylenol) 650 mg PRN Q6HRS PRN PO PAIN / TEMP; Start 07/11/18 at 14:45 Multi-Ingredient Ointment (Analgesic [place]) 1 charisse PRN QID PRN TP MUSCLE PAIN; Start 07/11/18 at 14:45 Al Hydroxide/Mg Hydroxide (Mylanta Plus Xs) 15 ml PRN AFTMEALHC PRN PO DYSPEPSIA; Start 07/11/18 at 14:45 Magnesium Hydroxide (Milk Of Magnesia) 2,400 mg PRN QHS PRN PO CONSTIPATION; Start 07/11/18 at 14:45 Lisinopril (Prinivil) 20 mg DAILY PO Last administered on 07/25/18at 07:37; Start 07/12/18 at 09:00 Amlodipine Besylate (Norvasc) 5 mg DAILY PO Last administered on 07/17/18at 07: 46; Start 07/12/18 at 09:00; Stop 07/17/18 at 18:14; Status DC Aspirin (Aspirin Enteric Coated) 81 mg DAILY PO Last administered on 07/25/18at 07:36; Start 07/12/18 at 09:00 Docusate Sodium (Colace) 100 mg BID PO Last administered on 07/25/18 19:49; Start 07/11/18 at 21:00 Donepezil HCl (Aricept) 10 mg QHS PO Last administered on 07/25/18 19:49; Start 07/11/18 at 21:00 Furosemide (Lasix) 40 mg DAILY PO Last administered on 07/22/18 08:20; Start 07/12/18 at 09:00; Stop 07/22/18 at 13:51; Status DC Polyethylene Glycol (miraLAX) 17 gm PRN DAILY PRN PO CONSTIPATION; Start at 15:45 Pregabalin (Lyrica) 100 mg BID PO Last administered on 07/25/18 19:51; Start 07/11/18 at 21:00 Atorvastatin Calcium (Lipitor) 20 mg DAILY PO Last administered on 07/25/18 07 :37; Start 07/12/18 at 09:00 Clonazepam (KlonoPIN) 0.125 mg PRN QHS PRN PO ANXIETY / AGITATION; Start at 15:45 Metformin HCl (Glucophage) 1,000 mg BIDWMEALS PO Last administered on 16:29; Start 07/11/18 at 17:00 Quetiapine Fumarate (SEROquel) 12.5 mg PRN DAILY PRN PO AGITATION; Start at 16:00 Insulin Human Lispro (HumaLOG) 0-5 UNITS TIDACHC SQ Last administered on 12:31; Start 07/11/18 at 21:00 Dextrose 12.5 gm PRN Q15MIN PRN IV SEE COMMENTS; Start 07/11/18 at 19:30 Divalproex Sodium (Depakote Sprinkles) 250 mg QHS PO Last administered on 19:49; Start 07/12/18 at 21:00 Bupropion HCl (Wellbutrin Xl) 150 mg DAILY PO Last administered on 07/25/18 07 :36; Start 07/16/18 at 09:00 Mirtazapine (Remeron) 7.5 mg QHS PO Last administered on 07/25/18 19:49; Start 07/17/18 at 21:00 Amlodipine Besylate (Norvasc) 10 mg DAILY PO Last administered on 07/18/18at 07: 54; Start 07/18/18 at 09:00; Stop 07/18/18 at 18:58; Status DC Insulin Human Lispro (HumaLOG) 5 units TIDAC SQ Last administered on 07/25/18at 12:30; Start 07/18/18 at 07:30 Insulin Glargine (Lantus) 10 units QHS SQ Last administered on 07/25/18at 19:55 ; Start 07/17/18 at 21:00 Metolazone (Zaroxolyn) 2.5 mg 3X/WEEK PO Last administered on 07/24/18at 07:51; Start 07/19/18 at 09:00 Furosemide (Lasix) 40 mg BID PO ; Start 07/22/18 at 21:00; Stop 07/22/18 at 21: 00; Status DC Furosemide (Lasix) 40 mg BIDWMEALS PO Last administered on 07/25/18at 16:29; Start 07/22/18 at 17:00 Active Scripts Active Reported Seroquel (Quetiapine Fumarate) 25 Mg Tablet 12.5 Mg PO PRN DAILY PRN Glucophage (Metformin Hcl) 500 Mg Tablet 1,000 Mg PO BIDWMEALS Lyrica (Pregabalin) 100 Mg Capsule 1 Cap PO BID Miralax (Polyethylene Glycol 3350) 17 Gm Powd.pack 1 Packet PO DAILY PRN Lisinopril 20 Mg Tablet 1 Tab PO DAILY Lasix (Furosemide) 40 Mg Tablet 1 Tab PO DAILY Aricept (Donepezil Hcl) 10 Mg Tablet 1 Tab PO QHS Colace (Docusate Sodium) 100 Mg Capsule 1 Cap PO BID Klonopin (Clonazepam) 0.5 Mg Tablet 0.25 Tab PO HS PRN Atorvastatin Calcium 20 Mg Tablet 20 Mg PO DAILY Aspirin Ec (Aspirin) 81 Mg Tablet. 1 Tab PO DAILY Norvasc (Amlodipine Besylate) 5 Mg Tablet 1 Tab PO DAILY I have reviewed the current psychotropics carefully including drug interactions. Risk benefit ratio favors no change other than as noted in my dictated progress note. Diagnosis: Problems: (1) Dementia, vascular, with depression (2) Anxiety disorder (3) Major depressive disorder, recurrent episode (4) Impulse control disorder (5) Mild cognitive impairment DARWIN ISAACS MD Jul 25, 2018 22:36
[2018-07-26] MEDS ORDERED: ACET325T9 PO (00:30)
[2018-07-26] MEDS ORDERED: DIVA125C2 PO (00:30)
[2018-07-26] MEDS ORDERED: INSU100V SQ ×2 (00:31→00:32)
[2018-07-26] MEDS ORDERED: INSU100I13 SQ (00:31)
[2018-07-26] MEDS ORDERED: MAG355OR11 PO (00:32)
[2018-07-26] MEDS ORDERED: MIRT15TA3 PO (00:33)
[2018-07-26] MEDS ORDERED: MAGN2400 PO (00:33)
[2018-07-26] MEDS ORDERED: METH29OI TP (00:33)
[2018-07-26] MEDS ORDERED: BUPR-192 PO (00:34)
[2018-07-26] MEDS ORDERED: METO2.5T PO (00:34)
[2018-07-26 05:53] VITALS: BP 155/83
[2018-07-26] MEDS: INSULIN LISPRO 300 UNITS/3 ML INSULN.PEN. SQ SCH ×4 (07:30→11:30)
[2018-07-26 07:35] VITALS: BP 155/83
[2018-07-26] MEDS: metFORMIN 500 MG TABLET PO SCH (07:35)
[2018-07-26] MEDS: LISINOPRIL 20 MG TABLET PO SCH (07:35)
[2018-07-26] MEDS: buPROPion XL 150 MG TAB.ER.24H PO SCH (07:35)
[2018-07-26] MEDS: ATORVASTATIN CALCIUM 20 MG TABLET PO SCH (07:35)
[2018-07-26] MEDS: metOLazone 2.5 MG TABLET PO SCH (07:35)
[2018-07-26] MEDS: DOCUSATE SODIUM 100 MG CAPSULE PO SCH (07:35)
[2018-07-26] MEDS: FUROSEMIDE 40 MG TABLET PO SCH (07:35)
[2018-07-26] MEDS: ASPIRIN ENTERIC COATED 81 MG TABLET.DR. PO SCH (07:37)
[2018-07-26] MEDS: PREGABALIN 50 MG CAPSULE PO SCH (07:38)
--- NOTE | 2018-07-26 08:58 | NUR ---
LATE ENTRY: Transition Record was faxed to follow-up provider with the following elements: Reason for admission, procedures, tests, principal diagnosis, pending studies, patient instructions, 20/11 contact information for unit, phone number to obtain pending test results, plan for follow-up care, physician follow-up, advanced directive information, and medication list with dose, duration and instructions. This information was included in the following documents: History and physical, lab results, study results, progress notes, social work planning form, DC instruction form, patient visit summary, and medication reconciliation form. Date & time record faxed:07/26/18 1100 Record faxed to: kevin deleon Record discussed with/ report given to: primary caregiver
--- NOTE | 2018-07-26 09:53 | NUR ---
Behavior Intervention Response and Plan: BIRP Note: Behavior: Assumed Care of patient, patient located in Dining Room at shift change. Patient exhibited the following behavior Attention Seeking, Calm, Interactive. Brief assessment on rounds of vital signs, medication needs, lab studies, and pain. Treatment plan problems . Intervention: Patient assessed and the following interventions initiated safety checks 15 Minute Checks Cognitive Assessment , Head to toe Assessment , Medications. Response: After interactions and interventions patient responded in the following manner, Calm , Compliant ,Cooperative. Continue to assess behaviors and condition will continue to monitor throughout the shift as needed. Patient educated on ADL's, and hand hygiene. Plan: Continue to monitor Master Treatment Plan for patient's progress toward short term goals of Decreased Agitation, Decreased Anxiety, terminal operator goals to return to previous living setting vs placement. Continue to assess patient for changes in above assessment. Monitor for medication needs, pain, and safety concerns. Hourly rounding performed to ensure safe environment.
--- NOTE | 2018-07-26 18:19 | DS ---
DATE OF DISCHARGE: 07/26/2018 DISCHARGE SUMMARY/PSYCHIATRIC PROGRESS NOTE This note covers elements not covered in my initial note. REASON FOR ADMISSION: Please refer to the admission history for details. Briefly, the patient is a 68-year-old male referred to us from [facility] where he presented from home on account of anxiety, depression, panic attacks. He has had 5 trips to the ER this year for pain in his lower extremity. He has been having visual hallucinations, fleeting suicidal ideation, confusion, insomnia, and has been hyperverbal. SIGNIFICANT FINDINGS AND CLINICAL COURSE: Following admission, the patient was seen daily individually by myself from a psychiatric standpoint and medically with Dr. Ozuna. He also had a Neurology consult with Dr. Guaman consequent to his vascular dementia with delusions and depression as requested by the daughter to compare the prior CT/MRIs for the vascular changes. He was reasonably oriented, somewhat distractible, anxious, depressed. Adjustments were made in his psychotropics. He seemed to respond to a combination of Aricept 10 mg a day, Klonopin 0.125 mg at bedtime p.r.n., Depakote Sprinkles 250 mg at bedtime, Seroquel p.r.n., Wellbutrin-XL 150 mg daily, Remeron 7.5 mg p.o. at bedtime. REVIEW OF SYSTEMS: Prior to discharge on 07/26/2018, no CV, , pulmonary, eye system symptoms on review, does complain of pedal edema, has been addressed per Dr. Ozuna. MENTAL STATUS EXAM: Oriented to himself and situation. Speech is coherent, abstraction fair, computation impaired, language function intact, attention span short. Mood and affect improved. No suicidal ideation. LABORATORY DATA: Reviewed. FINAL DIAGNOSES: Major depressive disorder, recurrent, in partial remission; anxiety disorder, unspecified; mild cognitive impairment versus major neurocognitive disorder, early vascular with depression. Rest unchanged from admission. DISCHARGE MEDICATIONS: Please refer to the MRAD. DISCHARGE INSTRUCTIONS: [facility] [place] and medical followup with his primary care physician. Time for discharge day management greater than 30 minutes. On 07/26/2018, I discussed the patient with Dr. Guaman at some length regarding the daughter's questions regarding his diagnosis in comparison of CT head and MRI head. MAN Dyan ISAACS MD DR: wDayne JOB#: [id number] / [id number]
--- NOTE | 2018-07-26 20:45 | PN ---
DATE: 07/24/2018 PSYCHIATRIC PROGRESS NOTE This late entry 07/24/2018 covers elements not covered in my initial note. SUBJECTIVE: I met with the patient in the evening. The patient slept for 3/4 hours previous night. We have consulted Dr. Guaman for any recommendations for his vascular dementia at the daughter's request and the daughter's request to compare the past 2 CT/MRI of the head. Behaviorally, he is doing well. Mood is better. REVIEW OF SYSTEMS: Complained of some pedal edema. No CV, , pulmonary, eye system symptoms on review. MENTAL STATUS EXAM: Reasonably oriented. Speech has some latency, coherent. Abstraction fair, computation impaired, language function intact, attention span short. Mood and affect improved. LABORATORY DATA: Reviewed. IMPRESSION: Unchanged from initial note. PLAN: No change from initial note. MAN Dyan ISAACS MD DR: GLORIA/vlad JOB#: [id number] / [id number]
--- NOTE | 2018-07-26 20:46 | PN ---
DATE: 07/25/2018 PSYCHIATRIC PROGRESS NOTE This late entry 07/25/2018 covers elements not covered in my initial note. SUBJECTIVE: I met with the patient in the evening. The patient was also staffed at a treatment team meeting with the entire team during the day. The patient has been sleeping reasonably at night. At the treatment team meeting, the patient's daughter, Reena, attended. We had a lengthy discussion about the patient's diagnosis of vascular dementia with depression and anxiety. Neurology consult with Dr. Guaman is still awaited. REVIEW OF SYSTEMS: Positive for some dependent edema. No CV, , pulmonary, eye system symptoms on review. MENTAL STATUS EXAM: Reasonably oriented. Speech is coherent, has some latency. Abstraction fair, computation impaired, language function intact, attention span short. Mood and affect is improved. No suicidal ideation. LABORATORY DATA: Reviewed. IMPRESSION: Unchanged from initial note. PLAN: No change other than what is noted above. DARWIN ISAACS MD DR: GLORIA/vlad JOB#: [id number] / [id number]
--- NOTE | 2018-07-26 22:52 | PDOC ---
Exam Note: Wesly Note: Please also refer to the separate dictated note~for this date of service dictated separately.~Patient seen individually. Discussed the patient with Nursing staff reviewed the chart.~Reviewed interim history and current functioning. Reviewed vital signs,~Labs/ Radiology~and current medications noted below. Continue current treatment with the changes noted in the dictated addendum note Assessment: Vital Signs: Vital Signs Date Time Temp Pulse Resp B/P (MAP) Pulse Ox O2 Delivery O2 Flow Rate FiO2 07/26/18 07:35 72 155/83 07/26/18 05:53 97.2 20 98 07/25/18 16:14 Room Air I&O Intake and Output 07/26/18 06:59 Intake Total 1560 ml Balance 1560 ml Intake Oral 1560 ml # Voids 1 Labs: Laboratory Tests Test 07/26/18 07:14 07/26/18 11:39 Glucose (Fingerstick) 109 mg/dL (70-99) H 172 mg/dL (70-99) H Current Medications: Meds: Current Medications Acetaminophen (Tylenol) 650 mg PRN Q6HRS PRN PO PAIN / TEMP; Start 07/11/18 at 14:45; Stop 07/26/18 at 15:26; Status DC Multi-Ingredient Ointment (Analgesic [place]) 1 laura PRN QID PRN TP MUSCLE PAIN; Start 07/11/18 at 14:45; Stop 07/26/18 at 15:26; Status DC Al Hydroxide/Mg Hydroxide (Mylanta Plus Xs) 15 ml PRN AFTMEALHC PRN PO DYSPEPSIA; Start 07/11/18 at 14:45; Stop 07/26/18 at 15:26; Status DC Magnesium Hydroxide (Milk Of Magnesia) 2,400 mg PRN QHS PRN PO CONSTIPATION; Start 07/11/18 at 14:45; Stop 07/26/18 at 15:26; Status DC Lisinopril (Prinivil) 20 mg DAILY PO Last administered on 07/26/18at 07:35; Start 07/12/18 at 09:00; Stop 07/26/18 at 15:26; Status DC Amlodipine Besylate (Norvasc) 5 mg DAILY PO Last administered on 07/17/18at 07: 46; Start 07/12/18 at 09:00; Stop 07/17/18 at 18:14; Status DC Aspirin (Aspirin Enteric Coated) 81 mg DAILY PO Last administered on 07/26/18at 07:37; Start 07/12/18 at 09:00; Stop 07/26/18 at 15:26; Status DC Docusate Sodium (Colace) 100 mg BID PO Last administered on 07/26/18at 07:35; Start 07/11/18 at 21:00; Stop 07/26/18 at 15:26; Status DC Donepezil HCl (Aricept) 10 mg QHS PO Last administered on 07/25/18at 19:49; Start 07/11/18 at 21:00; Stop 07/26/18 at 15:26; Status DC Furosemide (Lasix) 40 mg DAILY PO Last administered on 07/22/18at 08:20; Start 07/12/18 at 09:00; Stop 07/22/18 at 13:51; Status DC Polyethylene Glycol (miraLAX) 17 gm PRN DAILY PRN PO CONSTIPATION; Start at 15:45; Stop 07/26/18 at 15:26; Status DC Pregabalin (Lyrica) 100 mg BID PO Last administered on 07/26/18at 07:38; Start 07/11/18 at 21:00; Stop 07/26/18 at 15:26; Status DC Atorvastatin Calcium (Lipitor) 20 mg DAILY PO Last administered on 07/26/18at 07 :35; Start 07/12/18 at 09:00; Stop 07/26/18 at 15:26; Status DC Clonazepam (KlonoPIN) 0.125 mg PRN QHS PRN PO ANXIETY / AGITATION; Start at 15:45; Stop 07/26/18 at 15:26; Status DC Metformin HCl (Glucophage) 1,000 mg BIDWMEALS PO Last administered on at 07:35; Start 07/11/18 at 17:00; Stop 07/26/18 at 15:26; Status DC Quetiapine Fumarate (SEROquel) 12.5 mg PRN DAILY PRN PO AGITATION; Start at 16:00; Stop 07/26/18 at 15:26; Status DC Insulin Human Lispro (HumaLOG) 0-5 UNITS TIDACHC SQ Last administered on 11:30; Start 07/11/18 at 21:00; Stop 07/26/18 at 15:26; Status DC Dextrose 12.5 gm PRN Q15MIN PRN IV SEE COMMENTS; Start 07/11/18 at 19:30; Stop 07/26/18 at 15:26; Status DC Divalproex Sodium (Depakote Sprinkles) 250 mg QHS PO Last administered on 19:49; Start 07/12/18 at 21:00; Stop 07/26/18 at 15:26; Status DC Bupropion HCl (Wellbutrin Xl) 150 mg DAILY PO Last administered on 07/26/18 07 :35; Start 07/16/18 at 09:00; Stop 07/26/18 at 15:26; Status DC Mirtazapine (Remeron) 7.5 mg QHS PO Last administered on 07/25/18 19:49; Start 07/17/18 at 21:00; Stop 07/26/18 at 15:26; Status DC Amlodipine Besylate (Norvasc) 10 mg DAILY PO Last administered on 07/18/18 07: 54; Start 07/18/18 at 09:00; Stop 07/18/18 at 18:58; Status DC Insulin Human Lispro (HumaLOG) 5 units TIDAC SQ Last administered on 07/26/18 11:30; Start 07/18/18 at 07:30; Stop 07/26/18 at 15:26; Status DC Insulin Glargine (Lantus) 10 units QHS SQ Last administered on 07/25/18 19:55 ; Start 07/17/18 at 21:00; Stop 07/26/18 at 15:26; Status DC Metolazone (Zaroxolyn) 2.5 mg 3X/WEEK PO Last administered on 07/26/18 07:35; Start 07/19/18 at 09:00; Stop 07/26/18 at 15:26; Status DC Furosemide (Lasix) 40 mg BID PO ; Start 07/22/18 at 21:00; Stop 07/22/18 at 21: 00; Status DC Furosemide (Lasix) 40 mg BIDWMEALS PO Last administered on 3/29/19at 07:35; Start 07/22/18 at 17:00; Stop 07/26/18 at 15:26; Status DC Active Scripts Active Reported Metolazone 2.5 Mg Tablet 2.5 Mg PO 3X/WEEK Every Sunday, Sunday, and Sunday Bupropion Xl (Bupropion Hcl) 150 Mg Tab.er.24h 150 Mg PO DAILY Mirtazapine 15 Mg Tablet 7.5 Mg PO HS Analgesic [place] (Methyl Salicylate/Menthol) 28 Gm Oint...g. 1 Laura TP PRN QID PRN Milk Of Magnesia (Magnesium Hydroxide) 2,400 Mg/10 Ml Oral.susp 2,400 Mg PO PRN QHS PRN Maalox Advanced Suspension (Mag Hydrox/Aluminum Hyd/Simeth) 355 Ml Oral.susp 15 Ml PO PRN AFTMEALHC PRN Humalog (Insulin Lispro) 100 Unit/1 Ml Vial 5 Unit SQ TIDAC Humalog (Insulin Lispro) 100 Unit/1 Ml Vial 0-5 Unit SQ TIDACHC BS 70-150= 0 units if eating; 0 units if not eating/or HS BS 151-200= 2 units if eating; 0 units if not eating/or HS BS 201-250= 3 units if eating; 0 units if not eating/or HS BS 251-300= 4 units if eating; 2 units if not eating/or HS BS 301-250= 5 units if eating; 3 units if not eating/or HS BS > or = 351 call MD for orders Lantus Solostar (Insulin Glargine,Hum.rec.anlog) 100 Unit/1 Ml Insuln.pen 10 Unit SQ QHS Depakote Sprinkle (Divalproex Sodium) 125 Mg Cap.sprink 250 Mg PO QHS Tylenol (Acetaminophen) 325 Mg Tablet 650 Mg PO PRN Q6HRS PRN Seroquel (Quetiapine Fumarate) 25 Mg Tablet 12.5 Mg PO PRN DAILY PRN Glucophage (Metformin Hcl) 500 Mg Tablet 1,000 Mg PO BIDWMEALS Lyrica (Pregabalin) 100 Mg Capsule 1 Cap PO BID Miralax (Polyethylene Glycol 3350) 17 Gm Powd.pack 1 Packet PO DAILY PRN Lisinopril 20 Mg Tablet 1 Tab PO DAILY Lasix (Furosemide) 40 Mg Tablet 1 Tab PO BIDWMEALS Aricept (Donepezil Hcl) 10 Mg Tablet 1 Tab PO QHS Colace (Docusate Sodium) 100 Mg Capsule 1 Cap PO BID Klonopin (Clonazepam) 0.5 Mg Tablet 0.125 Mg PO HS PRN Atorvastatin Calcium 20 Mg Tablet 20 Mg PO DAILY Aspirin Ec (Aspirin) 81 Mg Tablet. 1 Tab PO DAILY I have reviewed the current psychotropics carefully including drug interactions. Risk benefit ratio favors no change other than as noted in my dictated progress note. Diagnosis: Problems: (1) Dementia, vascular, with depression (2) Anxiety disorder (3) Major depressive disorder, recurrent episode (4) Impulse control disorder (5) Mild cognitive impairment DARWIN ISAACS MD Jul 26, 2018 22:52
--- NOTE | 2018-07-29 13:09 | DS ---
DATE OF DISCHARGE: 07/26/2018 DISCHARGE SUMMARY/PSYCHIATRIC PROGRESS NOTE This late entry date of service 07/26/2018 covers elements not covered in my initial note. REASON FOR ADMISSION: Please refer to the admission history for details. Briefly, the patient is a 68-year-old male referred to us from [facility] where he presented from home on account of uncontrolled panic attacks. He had 5 trips to the Emergency Room this year for pain in his lower extremities. He is having visual hallucinations, suicidal ideation, confusion, insomnia. He was noted to be hyperverbal, anxious and had failed outpatient psychiatric interventions. SIGNIFICANT FINDINGS AND CLINICAL COURSE: Following admission, the patient was seen daily individually by myself from a psychiatric standpoint, medical followup with Dr. Ozuna. He also saw Dr. Guaman for Neurology consult, took for his CT, MRI head changes which were compared indicative of vascular changes. He was reasonably cognitively intact, but short-term memory did have deficits and his cognitive deficits appear to be consequent to the vascular dementia rather than Lewy body from the observations, we were able to make. He did have comorbid factors, predisposing him to the vascular changes including diabetes mellitus, hypertension in addition to his past history of alcohol abuse. He was noted to be depressed, anxious, somewhat impulsive and seemed to respond to a combination of Aricept 10 mg a day, which may be discontinued at a later date depending on how he does. He is also on Klonopin 0.125 mg at bedtime p.r.n., Depakote 250 mg at bedtime, Seroquel 12.5 mg p.r.n. daily, Wellbutrin-XL 150 mg a day, Remeron 7.5 mg p.o. at bedtime. We did not feel a need to add scheduled atypical antipsychotics given the risk/benefit ratio. Gradually mood appeared to improve. No psychotic symptoms were noted. No suicidal ideation and he was [facility] by [facility] at [facility]. REVIEW OF SYSTEMS: Prior to discharge on 07/26/2018, no CV, , pulmonary, eye system symptoms on review. MENTAL STATUS EXAM: The patient is oriented to himself and situation. Speech has some latency, coherent. Abstraction fair, computation somewhat impaired, language function intact. Short term memory is impaired. No active suicidal or homicidal ideation. Mood appeared improved. FINAL DIAGNOSES: Major depressive disorder in partial remission; anxiety disorder, unspecified; major neurocognitive disorder, early vascular with depression, history of delusions. Rest unchanged from admission. DISCHARGE MEDICATIONS: Please refer to the MRAD. DISCHARGE INSTRUCTIONS: [facility] and [facility]. Time for discharge day management greater than 30 minutes. MAN Dyan ISAACS MD DR: GLORIA/vlad JOB#: [id number] / [id number]
--- NOTE | 2018-07-29 16:47 | NUR ---
Transition Record was faxed to follow-up provider with the following elements: Reason for admission, procedures, tests, principal diagnosis, pending studies, patient instructions, 20/11 contact information for unit, phone number to obtain pending test results, plan for follow-up care, physician follow-up, advanced directive information, and medication list with dose, duration and instructions. This information was included in the following documents: History and physical, lab results, study results, progress notes, social work planning form, DC instruction form, patient visit summary, and medication reconciliation form. Date & time record faxed:07/29/18 1100 Record faxed to: kevin deleon Record discussed with/ report given to: primary caregiver
== END 2018-07-26 14:15 | DRG 885 ==
LOC: GEROPSY 13:45
PROVIDERS: ADMIT Psychiatry & Neurology Psychiatry; ATTEND Psychiatry & Neurology Psychiatry
DX: F33.9 Major depressive disorder, recurrent, unspecified (principal); R45.851 Suicidal ideations; F41.1 Generalized anxiety disorder; F01.50 Vascular dementia, unspecified severity, without behavioral disturbance, psychotic disturbance, mood disturbance, and anxiety; M79.606 Pain in leg, unspecified; F03.90 Unspecified dementia, unspecified severity, without behavioral disturbance, psychotic disturbance, mood disturbance, and anxiety; F41.0 Panic disorder [episodic paroxysmal anxiety]; N18.3 Chronic kidney disease, stage 3 (moderate); F02.80 Dementia in other diseases classified elsewhere, unspecified severity, without behavioral disturbance, psychotic disturbance, mood disturbance, and anxiety; D64.9 Anemia, unspecified; E11.22 Type 2 diabetes mellitus with diabetic chronic kidney disease; E11.42 Type 2 diabetes mellitus with diabetic polyneuropathy; F63.9 Impulse disorder, unspecified; G47.00 Insomnia, unspecified; I12.9 Hypertensive chronic kidney disease with stage 1 through stage 4 chronic kidney disease, or unspecified chronic kidney disease; K59.00 Constipation, unspecified; Z79.899 Other long term (current) drug therapy; F10.10 Alcohol abuse, uncomplicated
CPT/HCPCS: 36415; 70450; 80048; 80053; 80061; 81001; 82306; 82947; 83036; 83540; 83550; 83735; 84436; 84443; 84480; 85025; 86592; J1815; 97110; 97116; 97530